=== PATIENT | female | born 1950 | race Caucasian/White ===

== ENCOUNTER → 2017-06-20 | Outpatient (CLI) | payer OTHER ==
[~2017-06-20] MED LIST: ALLEGRA180 MG PO; ASPIRIN EC81 M1 PO; BACTRIM DS TAB1 EACH PO; CALCIUM 500 WI1 EAC3 PO; CALCIUM PO; CLARITIN-D 121 EACH; FISH OIL 1,2001 EAC4 PO; FLEXERIL PO; FLONASE 0.05%50 MCG NASAL; GLUCOPHAGE1000 MG PO; GLUCOPHAGE500 MG PO; HCTZ PO; LANTUS SC; LISINOPRIL-HCT1 EAC1 PO; LISINOPRIL10 MG PO; LOVASTAT40 PO; NORCO 7.5-3251 EACH PO; NOVOLOG100 UNIT/1 SQ; POTASSIUM99 M1 PO; RANITIDINE HCL300 M1 PO
== END ==
LOC: CAT 15:54
DX: N20.0 Calculus of kidney (principal)

== ENCOUNTER → 2017-12-28 | Outpatient (CLI) | payer OTHER | LOC: RAD 00:55 | DX: Z12.31 Encounter for screening mammogram for malignant neoplasm of breast (principal) ==

== ENCOUNTER → 2019-01-15 | Outpatient (CLI) | payer OTHER | LOC: RAD 02:28 | DX: Z12.31 Encounter for screening mammogram for malignant neoplasm of breast (principal) ==

== ENCOUNTER → 2019-03-25 | Outpatient (CLI) | payer OTHER ==
[2019-03-25 10:45] LABS: CREATININE 1.2 mg/dL (0.6-1.0)
== END ==
LOC: MRI 10:12
PROVIDERS: Surgery
DX: N63.12 Unspecified lump in the right breast, upper inner quadrant (principal); N63.20 Unspecified lump in the left breast, unspecified quadrant

== ENCOUNTER 2019-04-04 06:32 | Inpatient (IN) | payer OTHER ==
[~2019-04-04] VITALS: Ht 154.9 cm; Wt 112.5 kg
[~2019-04-04 06:32] MED LIST changes: +AMARYL2 M1 PO; +BYSTOLIC10 MG PO; +CALCIUM 600 +1 EAC1 PO; +CARAFATE 1 GM TA1 G1 PO; +CO Q-10100 MG PO; +FLAX OIL1000 MG PO; +LOSARTAN-HCTZ1 EAC2 PO; +MAGOX 400400 MG PO; +TRADJENTA5 MG; +VITAMIN B-12500 MCG PO; +VITAMIN D-32000 UNIT PO
[2019-04-04 07:15] VITALS: BP 152/51
[2019-04-04 07:41] LABS: CALCIUM 9.4 mg/dL (8.5-10.1); CREATININE 1.5 mg/dL (0.6-1.0); POTASSIUM 3.8 mmol/L (3.5-5.1)
[2019-04-04 07:48] LABS: ALBUMIN 3.3 g/dL (3.4-5.0); TOTAL BILIRUBIN 0.4 mg/dL (<0.1-1.0); TOTAL PROTEIN 6.9 g/dL (6.4-8.2)
--- NOTE | 2019-04-04 13:43 | EKG ---
[address] [address] ELECTROCARDIOGRAM REPORT Name: ONUR JACKSON Room #: 150-3 [facility]#: [id number] Admission: 04/04/19 Attend Phys: Jak Stone MD Discharge: Date of : 46 Report #: [id number] THIS REPORT FOR: //name// [facility] Test Date: 2019-04-04 Test Time: 07:22:43 Pat Name: ONUR JACKSON Department: Room: 150 3 Gender: F Public Relations Manager: JOHNNIE : 1950 Requested By: Jak Stone Order Number: [id number] MD: Hernando Ceja Measurements Intervals [place] Rate: 50 P: 35 MD: 193 QRS: -9 QRSD: 82 T: 31 QT: 458 QTc: 418 Interpretive Statements Sinus rhythm Inferior infarct, old Compared to ECG 06/12/2013 11:57:47 Myocardial infarct finding now present Sinus bradycardia no longer present Electronically Signed On 04-04-2019 13:43:41 CDT by Hernando Ceja [email or web address] <ELECTRONICALLY SIGNED> By: Hernando Ceja MD 04/04/19 1343 0722 1 Hernando Ceja MD /COLL[place]
[2019-04-04 15:36] VITALS: BP 189/54
--- NOTE | 2019-04-04 16:57 | NUR ---
ASSESSMENT-PT LIVES AT HOME IN A SPLIT LEVEL HOUSE WITH HER WHO IS HANDICAPPED. HE USES A WC TO GET AROUND, HE IS ABLE TO TRANSFER HIMSELF TO THE WC. HE NEEDS HELP WITH HIS MEDS DUE TO BRAIN INJURY. THEY HAVE 2 DTRS THAT LIVE 5-10 MINUTES AWAY. [facility] WILL BE AVAILABLE TO ASSIST ALL NEXT WEEK AT [facility]. PT HAS A GIRLFIRIEND THAT WILL COME STAY WITH HER TO ALLOW [facility]ANTU TAKE HER DAD TO APPT AT THE [place] ON SUN. THEY HAVE A LIFT ON THE VAN FOR THE SCOOTER. THEY HAVE 2 STAIRGLIDES TO ENTER TO MAIN LEVEL. ON THE LOWER LEVEL THEY HAVE A BEDRROM AND KITCHEN AREA. [place] ON MAIN LEVEL. BEDRROMS ARE UPER LEVEL. THEY ARE ASKING ABOUT THE HEALING CHAIR FOR PT TO BE ABLE TO SLEEP IN. APPLICATION FILLED OUT ONLINE WITH [facility] BUT UNABLE TO LOCATE A PHONE NUMBER FOR THEM. DTR GOING TO FOLLOW-UP WITH HER AUNT WHO HAD ASISTED A COUSIN IN GETTING A CHAIR A COUPLE OF YRS AGO. PT IS NORMALLY THE CAREGIVER FOR HER SPOUSE. [facility] HAS [place] PAPERWORK THAT WILL NEED TO BE COMPLETED BY DR. LIPSCOMB TO ASSIST WITH DC PLANNING.
--- NOTE | 2019-04-04 19:17 | NUR ---
ASSESMENT COMPLETED. VSS. A/O. PAIN MANAGED BY MEDS ORDERED. NO NOTED SOA. NO NV. DANIELLA WRAP ACCROSS CHEST CDI. BRIANNA TO BULB SUCTION X2 ON LEFT SIDE. BRIANNA X1 TO RIGHT. UP WITH ASSIST STAND BY TO COMMODE. PT RESTING IN BED APPEARS COMFORTABLE. REPORT GIVEN TO [facility] [place].
[2019-04-04 19:55] VITALS: BP 147/52
--- NOTE | 2019-04-05 04:29 | NUR ---
ASSUMED PT CXARE 1900. PT ALERT AND ORIENTED. REASSESSMENT COMPLETE. VSS. IV DRESSING C/D/I. POST OP DRESSING C/D/I, DRAINS IN PLACE. REPORTS PAIN, SEE EMAR. DENIES N/V. WORKING TOWARD POC. CALL LIGHT AND PERSONAL BELONIGNS WITHIN REACH, WILL CONTINUE POC UNTIL EOS.
[2019-04-05 04:56] VITALS: BP 129/38
[2019-04-05 04:59] LABS: CALCIUM 8.2 mg/dL (8.5-10.1); CREATININE 1.4 mg/dL (0.6-1.0); POTASSIUM 4.5 mmol/L (3.5-5.1)
[2019-04-05 05:09] LABS: HEMATOCRIT 31.3 % (37.0-47.0); HEMOGLOBIN 10.4 gm/dL (12.0-15.0); MCH 28.7 pg (26.0-34.0); MCHC 33.1 g/dL (28.0-37.0); MCV 86.9 fL (80.0-100.0); RBC 3.6 mil/uL (4.20-5.00); RDW 14.7 % (10.5-14.5)
[2019-04-05 07:34] VITALS: BP 118/43
[2019-04-05 16:23] VITALS: BP 130/45
--- NOTE | 2019-04-05 18:09 | NUR ---
ASSUMED CARE OF PT AT 0700. ASSESSMENT CHARTED. A&O,X4. C/O POD1 PAIN, PO PAIN MEDS GIVEN ORDERED. DENIES N/V/D. ACHS, INSULIN GIVEN ORDERED. ELEVATED BLOOD SUGARS NOTED, DR. WYNNE AND DR. GIBSON AWARE. RIGHT SIDE BRIANNA DRAIN X1 AND LEFT BRIANNA DRAIN X2. DANIELLA WRAP IN PLACE AROUND UPPER CHEST, C/D/I. NO DRESSING CARE ORDERS. NEW IV ACCESS OBTAINED BY IV TEAM AT BEGINNING OF SHIFT. ROOM AIR DURING THE DAY/ CPAP AT NIGHT. FAMILY INVOLVED IN PT CARE, AT BEDSIDE THROUGHOUT DAY. POSSIBLE D/C TOMORROW. VSS. WILL CONTINUE TO MONITOR UNTIL EOS.
--- NOTE | 2019-04-06 03:47 | NUR ---
Pt. rested quietly during the night when checked on during frequent rounds. She has been medicated for bilateral breast pain and nausea (see emar) with some relief noted. She did ambulate to the bathroom with assistance of one. Dressing to her chest is intact.
[2019-04-06 05:38] VITALS: BP 134/45
[2019-04-06 08:03] VITALS: BP 145/48
--- NOTE | 2019-04-06 18:11 | NUR ---
Assumed care of pt at 0700. Pt a&ox4. Dressing on brests changed per verbal order. Pain controlled with prn pain meds. [address] Pt has hematoma on right side. Up with 1 person. Call light within reach. Family at bedside. Will continue to monitor.
[2019-04-06 19:57] VITALS: BP 147/39
--- NOTE | 2019-04-07 03:32 | NUR ---
ASSESSMENT COMPLETED.GOT A CALL FROM MALLORY BUCKNER NOTED TO KEEP PT AFTER MN FOR A PROCEDURE LATER IN THE DAY,AND TO HOLD AM INSULIN.PT HAS THREE BRIANNA DRAINS,2 ON L AND 1 ON R,SEROSANGUINEOUS DRAINAGE NOTED.PT UP WITH SBA,MIN ASSIST NEEDED TO THE BR.JAMES C/D/I.PT SLEEPING WITH A CPAP AT THIS TIME.FALL PRECAUTIONS IN PLACE,CALL LIGHT WITHIN REACH.
[2019-04-07 03:47] VITALS: BP 147/36
[2019-04-07 05:53] LABS: HEMATOCRIT 25.1 % (37.0-47.0); MCH 29.1 pg (26.0-34.0); MCHC 33.6 g/dL (28.0-37.0); MCV 86.7 fL (80.0-100.0); RBC 2.89 mil/uL (4.20-5.00); RDW 14.8 % (10.5-14.5); WBC 8.5 thou/uL (4.0-11.0)
[2019-04-07 05:57] LABS: HEMOGLOBIN 8.4 gm/dL (12.0-15.0)
[2019-04-07 07:38] VITALS: BP 138/37
--- NOTE | 2019-04-07 08:56 | NUR ---
ASSESMENT COMPLETED. VSS. C/O MILD PAIN ON RIGHT BREAST -MEDS GIVEN ORDERED- SEE MAR. NO NOTED SOA. ENCOURAGED USE OF IS. NO NV. PT RESTING IN BED. PLANS FOR HEMATOMA EVACUATION TODAY WITH DR. WYNNE. PT REMAINS NPO. WILL CONT. TO MONITOR.
[2019-04-07 14:52] VITALS: BP 153/42
--- NOTE | 2019-04-07 16:45 | NUR ---
S/W [facility] AND THEY HAVE OBTAINED THE HEALING RECLINER CHAIR. SHE IS ASKING OABOUT A BSC. BR/BEDROOM ON SAME LEVEL THEREFORE MEDICARE WILL NOT COVER BSC. INFORMED SHE COULD PURCHASE ONE AT [address], [facility], [email or web address]. FOLLOWING.
--- NOTE | 2019-04-07 16:56 | NUR ---
PT BACK FROM SURGERY. BRIANNA DRAIN TO RIGHT X2 PATENT. FAMILY AT BEDSIDE. PT RESTING IN BED APPEARS COMFORTABLE. FAMILY AT BEDSIDE. WILL CONT. TO MONITOR.
[2019-04-07 19:17] VITALS: BP 150/51
[2019-04-08 04:27] VITALS: BP 154/50
[2019-04-08 10:48] LABS: HEMATOCRIT 26.8 % (37.0-47.0); MCH 29.1 pg (26.0-34.0); MCHC 33.6 g/dL (28.0-37.0); MCV 86.7 fL (80.0-100.0); RBC 3.1 mil/uL (4.20-5.00); RDW 14.7 % (10.5-14.5); WBC 9.7 thou/uL (4.0-11.0)
[2019-04-08 10:58] LABS: CALCIUM 8.9 mg/dL (8.5-10.1); CREATININE 1.1 mg/dL (0.6-1.0); POTASSIUM 3.8 mmol/L (3.5-5.1)
[2019-04-08] MEDS ORDERED: HYDROCODON-ACE1 EAC7 PO (12:48)
[2019-04-08] MEDS ORDERED: ZOFRAN ODT4 MG DISSOLVE (12:48)
[2019-04-08] MEDS ORDERED: IRON325 PO (12:49)
[2019-04-08 14:09] VITALS: BP 154/50
[2019-04-08 14:31] VITALS: BP 154/50
[2019-04-08 14:34] VITALS: BP 154/50
[2019-04-08 15:26] VITALS: BP 154/50
--- NOTE | 2019-04-08 15:30 | NUR ---
DISCHARGE PAPERS GONE OVER WITH PATIENT AND PATIENT'S DAUGHTER SIGNED AND COPY IN CHART. ALL BELONGINGS PACKED AND SENT WITH PATIENT . IV ACSESS DCD. SENT HOME WOUND CARE SUPPLIES.
--- NOTE | 2019-04-09 16:13 | NUR ---
LATE ENTRY FROM 04/08/19 OFFERED HH OPTIONS TO PT AND DTR [facility] AND THEY CHOSE [facility]. ALERTED [facility] OF THE REFERRAL AND THEY ARE ABLE TO ACCEPT IT.
--- NOTE | 2019-04-15 11:07 | PATH ---
[facility] [place] [address] PATHOLOGY RPT PROCEDURE Name: COLETTE JACKSON Room #: 431-P [facility] IN M.R.#: [id number] Admission: 04/05/19 Date of : 46 Discharge: 04/08/19 Report #: [id number] Path Case #: [id number] LCA Accession Number: [id number] . 01 Material submitted: . PART A: breast - LEFT BREAST; LONG STITCH LATERAL, SHORT STITCH SUPERIOR. Modifiers: left PART B: lymph node - LEFT AXILLARY SENTINEL LYMPH NODES 1 - FS. Modifiers: left, axillary tail PART C: lymph node - LEFT AXILLARY SENTINEL LYMPH NODES 2 - FS. Modifiers: left, axillary tail PART D: lymph node - HIGHEST LEFT AXILLARY LYMPH NODES. Modifiers: left, axillary tail PART E: lymph node - LEFT AXILLARY NODE DISSECTION. Modifiers: left, axillary tail PART F: breast - RIGHT BREAST; SHORT STITCH SUPERIOR, LONG STITCH LATERAL. Modifiers: right . 01 Clinical history: . Left breast cancer. . 02 Frozen section diagnosis: . TOUCH PREPARATION DIAGNOSIS: (Dr. Falguni Amado) TPB1. Left axillary sentinel lymph node #1, biopsy: - Positive for malignancy; malignant epithelial cells present. . TPC1. Left axillary sentinel lymph node #2, biopsy: - Positive for malignancy; malignant epithelial cells present. . These findings are discussed with Dr. Jak Stone and a written report is placed in the patient's chart. TOUCH PREPARATION GROSS DESCRIPTION: B. Received fresh from the OR labeled with the patient's name and "left axillary sentinel lymph node #1", and consists of a 2.0 x 2.0 x 0.8 cm fatty fragment of tissue. The specimen is bisected and touch preparations are made labeled as TPB1. The entire tissue is submitted for permanent sections only as B1. . Time of tissue removal is 10:43 am, time tissue placed in formalin is 11:00 am on 04/04/2019. . C. Received fresh from the OR labeled with the patient's name and "left axillary sentinel lymph node #2", and consists of a 1.5 x 1.0 x 0.5 cm tissue. The specimen is bisected and touch preparations are made labeled TPC1. The entire tissue is bisected and submitted for permanent sections only as C1. (IUV:[facility]; 04/04/2019) . [place] [address] [place] [address] PATHOLOGY RPT PROCEDURE Name: COLETTE JACKSON Doreen Room #: 431-P [facility] IN M.R.#: [id number] Admission: 04/05/19 Date of : 46 Discharge: 04/08/19 Report #: [id number] Path Case #: [id number] Touch Preparation performed at [facility], [facility] [address], [place] [address]. IZV/QTP . 02 Diagnosis: A. 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 - Focal associated ductal carcinoma in situ, solid and cribriform types, nuclear grade II-III/III, with focal necrosis. - Margins of excision: Negative; invasive carcinoma is located a minimum of 0.5 cm away from the closest (deep) margin; ductal carcinoma in situ is located greater than 1 cm away from the margins. - Areas suspicious for angiolymphatic invasion are present. - Calcifications are present in association with invasive carcinoma. - Skin of breast with seborrheic keratoses, two. . B. "[place] lymph node #1", left axilla, biopsy: - ONE LYMPH NODE WITH METASTATIC ADENOCARCINOMA (08/27). - Metastatic focus measures 1.2 cm in greatest dimension and it exhibits extracapsular spread. . C. "[place] lymph node #2", left axilla, biopsy: - ONE LYMPH NODE WITH METASTATIC ADENOCARCINOMA (08/27). - Metastatic focus measures 0.8 cm in greatest dimension and it exhibits extracapsular spread. . D. "Highest left axillary lymph node", biopsy: - One lymph node with no evidence of carcinoma (0/). . E. Lymph nodes, "left axillary node dissection": - METASTATIC ADENOCARCINOMA PRESENT IN THREE OUT OF EIGHT LYMPH NODES (3/8). - Metastatic foci measure 0.6 cm, 0.3 cm, and 0.7 cm. . F. Breast, right, mastectomy: - Papillary apocrine metaplasia. - Sclerosing adenosis with associated calcifications, focal. - Simple cysts. - No evidence of atypia or malignancy. . (Please see comment and synoptic report) (SKM:pit; 04/08/2019) QTP/04/08/2019 . 02 Comment: [facility] [address] [address] PATHOLOGY RPT PROCEDURE Name: COLETTE JACKSON Room #: 431-P [facility] IN M.R.#: [id number] Admission: 04/05/19 Date of : 46 Discharge: 04/08/19 Report #: [id number] Path Case #: [id number] The tumor present in specimen "A" measured 6.5 cm grossly; however, the tumor was also present in random associate financial representative sections from the upper outer quadrant and lower outer quadrant which were grossly normal. Thus, the tumor has an estimated measurement of approximately 8.5 cm in greatest dimension. . The tumor present in the lymph node in part "B" will be tested for Her-2-ne u expression. The results will be issued in an addendum report. . . This patient's prior biopsy from [facility] Pathology (their ) showed an invasive carcinoma with the following breast prognostic studies: Estrogen receptor status - 90% positive; progesterone receptor status - 70% positive; Her2 negative by FISH, and a Ki-67 proliferation index of 20 to 30%. . Surgical Pathology Cancer Case Summary . Protocol posting date: September 2018 . INVASIVE CARCINOMA OF THE BREAST: Resection . A. Procedure ___ Total mastectomy (including nipple-sparing and skin-sparing mastectomy) . Specimen Laterality ___ Left . Tumor Size ___ Greatest dimension of largest invasive focus >1 mm: Approximately 8.5 cm . Histologic Type (Note D) ___ Invasive carcinoma of no special type (invasive ductal carcinoma, not otherwise specified) . Histologic Grade ([place] Histologic Score) Glandular (Acinar)/Tubular Differentiation ___ Score 3 (<10% of tumor area forming glandular/tubular structures) . Nuclear Pleomorphism ___ Score 3 (vesicular nuclei, often with prominent nucleoli, exhibiting marked variation in size and shape, occasionally with very large and bizarre forms) . [facility] [address] [place] [address] PATHOLOGY RPT PROCEDURE Name: COLETTE JACKSON Doreen Room #: 431-P [facility] IN [facility].#: [id number] Admission: 04/05/19 Date of : 46 Discharge: 04/08/19 Report #: [id number] Path Case #: [id number] Mitotic Rate ___ Score 1 . Overall Grade ___ Grade 2 (scores of 6 or 7) . Ductal Carcinoma In Situ (DCIS) ___ Present focally + ___ Negative for extensive intraductal component (EIC) + Estimated size (extent) of DCIS is approximately 4 mm . + Architectural Patterns + ___ Cribriform + ___ Solid . + Nuclear Grade + ___ Grade II-III/III . + Necrosis + ___ Present, focal (small foci or single cell necrosis) . Margins . Invasive Carcinoma Margins ___ Uninvolved by invasive carcinoma Distance from closest margin (millimeters): Deep Specify 0.5 cm . DCIS Margins ___ Uninvolved by DCIS Distance from closest margin: ___ Greater than 10 mm . Regional Lymph Nodes ___ Involved by tumor cells Number of Lymph Nodes with Macrometastases (>2 mm): 5 Size of Largest Metastatic Deposit: 12 mm . Extranodal Extension ___ Present in two of the lymph nodes . Total Number of Lymph Nodes Examined: 10 Number of [place] Nodes Examined: 2 . . Pathologic Stage Classification (pTNM, AJCC 8th Edition) . Primary Tumor (pT) [address] [address] PATHOLOGY RPT PROCEDURE Name: COLETTE JACKSON Room #: 431-P DIS IN [facility]#: [id number] Admission: 04/05/19 Date of : 46 Discharge: 04/08/19 Report #: [id number] Path Case #: [id number] ___ pT3:Tumor >50 cm in greatest dimension . Regional Lymph Nodes (pN) . ___ pN2a:Metastases in 4 to 9 axillary lymph nodes (at least 1 tumor deposit larger than 2.0 mm) + Microcalcifications + ___ Present in association with invasive carcinoma . (SKM:pit; 04/08/2019) . 02 Addendum: . . Special studies report received from [facility], [address] [place] [address], [address], [place], [address], on case [id number], labeled with their number [id number], dated 04/14/2019. . Breast/Prognostic Marker Analysis . Specimen Site: Lt Axillary LN,- Metastatic Breast Cancer Specimen ID #: [id number] . HER2 Not Over-Expressed Score: 0 Analysis: Manual . Time to Fixation (Cold Ischemic Time): Not Provided Duration of Fixation: Not Provided Type of Fixative: 10% Neutral Buffered Form . at [facility]. Joaquín Sadler MD Pathologist . . . Methodology: The HER2 Receptor protein expression is analyzed using the [place] HER2 rabbit monoclonal antibody (clone [id number]). This assay is used for diagnostic determination of the HER2 protein over-expression in paraffin embedded, formalin fixed breast cancer tissue on the [employer]. The specimen is processed using a secondary antibody-HRP conjugate detection system. The membrane staining of the tumor is determined either by manual score or image analysis. This antibody is intended for in vitro diagnostic use. The score is reported as 0, 1+, 2+, or 3+. This test is used for clinical purposes. [place] [id number] PATHOLOGY RPT PROCEDURE Name: COLETTE JACKSON Room #: 431-P [facility] IN [facility].#: [id number] Admission: 04/05/19 Date of : 46 Discharge: 04/08/19 Report #: [id number] Path Case #: [id number] . Intended Use: This antibody is intended for in vitro diagnostic (IVD) use. HER2 (4B5) is a rabbit monoclonal antibody intended for the semi-quantitative detection of HER2 antigen in sections of formalin-fixed, paraffin embedded normal and neoplastic tissue. . . Disclaimer: This Test was performed by [facility]. at [address], [place] [address], [place], [address]. . [facility] is a business unit of [facility]. a wholly-owned subsidiary of [employer]. . This assay has not been validated on decalcified tissues. Results should be interpreted with caution if this specimen was decalcified given the likelihood of false negativity on decalcified specimens. . Any image(s) that accompany this report is/are a associate financial representative image(s) only and should not be used to render a diagnosis. . This interpretation is contingent on the specimen and the clinical information received. . For any special tests/stains performed, known positive cells or tissues are tested with each marker and examined to ensure positivity. Positive and negative internal controls, if present, react appropriately. . This analysis is an adjunct to the evaluation of the referring physician and does not represent a final diagnosis. . The immunohistochemistry tests performed at [facility]. were validated on tissue fixed in 10% neutral buffered formalin. The performance characteristics of the tests performed on tissue processed in other fixatives is not known. . HER2 testing at [facility]., is performed in compliance with the 2018 updated ASCO/CAP Clinical Practice Guideline Focused Update. If the result is EQUIVOCAL (2+), it must be confirmed by an alternative assay such as FISH or Dual CHEO. REF: Greg MONTAGUE, BRITNEY Landers et al: Human Epidermal Growth Factor Receptor 2 Testing in Breast Cancer: ASCO/CAP Clinical Practice Guideline Focused Update. J Clin Oncol 36:6864-1909, 2018. HER2 and ER/DC ASCO/CAP guidelines require fixation in neutral buffered formalin for a minimum of 6 and a maximum of 72 hours. Fixation times less than 6 hours may not adequately preserve cell proteins. Fixation times [facility] [address] [place] [address] PATHOLOGY RPT PROCEDURE Name: COLETTE JACKSON Room #: 431-P DIS IN M.R.#: [id number] Admission: 04/05/19 Date of : 46 Discharge: 04/08/19 Report #: [id number] Path Case #: [id number] longer than 72 hours may cause excess cross-linking of proteins reducing the antigen available for staining. Either scenario can cause reduced staining; hence false negative results are possible and should be considered for these situations if the HER2 IHC score is less than 3+ or ER or DC is negative (no staining or <1% positive). It is recommended that specimens fixed longer than 72 hours with HER2 IHC scores less than 3+ be confirmed by HER2 FISH or Dual CHEO. The time from biopsy/excision to fixation in formalin (cold ischemic time) must be less than 1 hour. Time to fixation (cold ischemic time) greater than 1 hour should be interpreted with caution. HER2 testing, mainly HER2 by FISH, is particularly vulnerable since excessive cold ischemic time results in preferential loss of HER2 probe signals that may lead to false negative results. . SCORE STAINING PATTERN IN TUMOR CELLS INTERPRETATION RESULTS 0 No staining observed or incomplete, faint membrane staining in less than or equal to 10% of tumor cells. Negative 1+ Incomplete, faint membrane staining in greater than 10% of tumor cells. Negative 2+ Weak to moderate complete membrane staining observed in greater than 10% of tumor cells. Equivocal* *Must be confirmed by alternative assay (IHC/FISH/Dual CHEO) 3+ Intense, complete membrane staining in greater than 10% of tumor cells. Positive . A complete copy of the report is on file. . Professional and Technical services performed by [employer] [facility], [employer]. at [address], [place] [address]. . . (SKM:niko 04/15/2019) . AZTammie/04/15/2019 Addendum Electronically Signed by Ilya Phillips MD, Pathologist . 02 Electronically signed: . Ilya Phillips MD, Pathologist NPI- [id number] . 01 Gross description: . A. Received in formalin labeled "Colette Jackson, left breast long stitch [address] [address] PATHOLOGY RPT PROCEDURE Name: COLETTE JACKSON Room #: 431-P [facility] IN [facility].#: [id number] Admission: 04/05/19 Date of : 46 Discharge: 04/08/19 Report #: [id number] Path Case #: [id number] lateral short stitch superior" is a 2287 g simple mastectomy specimen which measures 32.6 cm from superior to inferior, 33.0 cm from medial to lateral, and 8.5 cm from anterior to posterior. On the anterior aspect is an ellipse of boateng-white skin measuring 33.0 x 24.2 x 0.5 cm. The skin displays multiple boateng-brown crusted lesions (at least 21 lesions) ranging from 0.6-2.3 cm in greatest dimension. The skin also displays a centrally located everted nipple measuring 1.7 x 1.5 x 0.5 cm. No induration or retraction is identified. The superior half of the anterior soft tissue margin is inked blue, the inferior half of the anterior soft tissue margin is inked green, and the deep/posterior fascia margin is inked black. The specimen is serially sectioned to reveal a boateng-white stellate mass at 12:00, 6.7 cm from the nipple. The mass measures 6.5 cm from medial to lateral, 6.3 cm from superior to inferior, and 2.5 cm from anterior to posterior. The mass is located to the margins as follows: 14.7 cm to superior, 17.1 cm to inferior, 8.8 cm to lateral, 12.3 cm to medial, 11.2 cm to posterior, and 2.3 cm to anterior. The uninvolved breast parenchyma is yellow and lobulated with 25% dense white fibrous tissue. No intramammary lymph nodes are grossly identified. Shared Services And Outsourcing Manager sections of the specimen are submitted as follows: A1 upper outer quadrant A2 lower outer quadrant A3 lower inner quadrant A4 upper inner quadrant A5 skin closest to mass A6 nipple, serially sectioned A7-A8 associate financial representative skin lesions A9 deep margin closest to mass A10 anterior margin closest to mass A11-A17 one section per centimeter of mass moving from lateral to medial The specimen is removed from the patient at 1031 and placed in formalin at 1042 on April 04, 2019. The specimen is removed from formalin at 1850 on April 06, 2019. . B. SEE FROZEN SECITON FOR GROSS DESCRIPTION. The specimen was removed from formalin at 6:50 PM on 04/06/2019. . C. SEE FROZEN SECTION FOR GROSS DESCRIPTION. The specimen was removed from formalin at 6:50 PM on 04/06/2019. . D. Received in formalin labeled "Colette Jackson, highest left axillary lymph node" is a 0.6 x 0.5 x 0.5 cm pink-boateng lymph node. The specimen is trisected and submitted in cassette D1. . E. Received in formalin labeled "Colette Jackson, left axillary node dissection" is a portion of yellow-boateng lobulated fibroadipose tissue measuring 11.2 x 9.0 x 3.0 cm. The specimen is palpated to reveal nine pink-[place]eng lymph nodes ranging from 0.3-1.5 cm in greatest dimension. Shared Services And Outsourcing Manager sections of the specimen are submitted as follows: [facility] [address] [place] [address] PATHOLOGY RPT PROCEDURE Name: COLETTE JACKSON Room #: 431-P [facility] IN M.R.#: [id number] Admission: 04/05/19 Date of : 46 Discharge: 04/08/19 Report #: [id number] Path Case #: [id number] E1-E2 multiple whole lymph nodes in each cassette E3-D5 one lymph node in each cassette, serially sectioned E6-E8 fibroadipose tissue to look for additional lymph nodes . F. Received in formalin labeled "Colette Jackson, right breast short superior long lateral" is a 2381 g simple mastectomy specimen which measures 33.5 cm from medial to lateral, 35.5 cm from superior to inferior, and 8.5 cm from anterior to posterior. The anterior aspect displays an ellipse of boat[place]-white skin measuring 32.6 x 26.0 x 0.4 cm. The skin displays multiple boateng-brown crusted lesions (at least 8) ranging from 0.4-2.1 cm in greatest dimension. The skin also displays a centrally located everted nipple measuring 1.3 x 1.2 x 0.5 cm. No skin retraction or induration is identified. The specimen is serially sectioned to reveal a possible intramammary lymph in the upper outer quadrant measuring 1.1 cm. No masses are identified. The cut surface is comprised of 75% yellow lobulated tissue and 25% dense white fibrous tissue. Shared Services And Outsourcing Manager sections are submitted as follows: F1 upper outer quadrant F2 lower outer quadrant F3 lower inner quadrant F4 upper inner quadrant F5 associate financial representative skin F6 nipple, serially sectioned F7-F8 associate financial representative skin lesions F9 entire possible intramammary lymph node The specimen is removed from the patient at 1132 and placed in formalin at 1138 on April 04, 2019. The specimen is removed from formalin at 1850 on April 06, 2019. ([facility]; 04/06/2019) SYC/SYC . 02 Pathologist provided ICD-10: C50.912, D05.12, N64.1, L82.1, C77.9, C77.3, N60.81, N60.21, N60.01 . 02 CPT . 880176, 184978, 015550, 703002, 828585, 361888 Specimen Comment: A courtesy copy of this report has been sent to Specimen Comment: [phone], , , . Specimen Comment: Report sent to ,DR LOCKE,DR BOSE / MARTINEZ Performed at: [address], [place] [id number] MD Sp Julian MD Phone: [phone] Performed at: [address] [id number] MD Falguni Amado MD Phone: [phone]
--- NOTE | 2019-05-01 12:47 | O ---
[facility] [place] [address] OPERATIVE REPORT Name: ONUR JACKSON Room #: 431-P [facility] IN M.R.#: [id number] Admission: 04/05/19 Attend Phys: Jak Stone MD Discharge: 04/08/19 Date of : 46 Report #: [id number] THIS REPORT FOR: //name// CC: Alfred Stone DATE OF SERVICE: 04/04/2019 PREOPERATIVE DIAGNOSES: 1. Left breast adenocarcinoma, recently diagnosed. 2. High risk with positive family history. 3. Bilateral large breasts with back and shoulder pain. PROCEDURES PERFORMED: 1. Left mastectomy with sentinel node biopsy followed by left axillary node dissection. 2. Right mastectomy. ANESTHESIA: General. SURGEON: Jak Stone MD COMPLICATIONS: None. ESTIMATED BLOOD LOSS: 150 mL. FINDING: The sentinel nodes 1 and 2 were positive and axillary dissection was then performed. No obvious involvement in the rest of the lymph nodes. PROCEDURE NOTE: With the patient under general anesthesia, both breasts and axillae were prepped and draped in sterile fashion. IV antibiotic was given. A timeout was performed. Mastectomy incision was then drawn. The patient has large pendulous breasts. Quite a bit of skin was removed. The breast biopsy site is slightly superior to the tumor and this was excised over the specimen. X was marked at 12 o'clock position, where the tumor was palpable. After making the superior incision, the skin flap was created taking the skin off the breast until the chest wall was encountered. Inferior skin incision was then made. Cautery was used for hemostasis. Hemoclip was used for hemostasis. The inferior skin flap was created without difficulty. The breast was then taken off the chest wall. Again, Hemoclips were applied for the perforating vessels. The breast was then flipped laterally. The breast was then excised. [place] node was identified using the Neoprobe. The Neoprobe guided to the lymph node and these were the ones that I saw in the office, which had an abnormal appearance. There were two lymph nodes that were identified. [place] node #1 had the higher activity measuring 2069 count per 10 second. [place] node #[address] [address] OPERATIVE REPORT Name: ONUR JACKSON Room #: 431-P [facility] IN M.R.#: [id number] Admission: 04/05/19 Attend Phys: Jak Stone MD Discharge: 04/08/19 Date of : 46 Report #: [id number] had a count of 1304. Rest of the lymph node did not have any measurable, significant activity. The sentinel node 1 and 2 were analyzed by the pathologist. The breast specimen was also given to the pathologist, with orientation where the tumor is located. The sentinel nodes on frozen section were positive. The right axillary node dissection was then performed. The patient had a branch of the axillary vein that was identified. This was pretty small. I did not see the actual larger size vein. I could see the artery and found the artery. Dissection was carried to the apex. The blood supply to the pectoralis was preserved. Lymph tissue was then dissected free. The long thoracic nerve was identified. Because of the variation in the venous anatomy, I did not dissect out the thoracodorsal nerve pedicle. The nodes were harvested without difficulty. Irrigation was performed. Hemostasis obtained. Moist lap tape was then placed in the axilla, in the mastectomy site. The left side was covered with a towel. After changing gown, gloves, suction cautery and suction, the right mastectomy was then performed. The right mastectomy was performed in the identical manner. The incision was drawn. Most of the skin was removed since the patient's breast is so large. The superior skin flap was created. The inferior skin flap was created. Clips were used. Cautery was used. Breast was then taken off the chest wall, going medial to lateral direction. The lateral part was then amputated. Specimen was then placed in formalin. The right side was irrigated. The subcutaneous tissue was brought together with a 3-0 Vicryl on both sides. Skin was then closed with 4-0 PDS. One #19 Vincent drain was left on the right side. Two #19 Vincent drains were placed on the left, one towards the axilla, the other one under the skin flap. Dermabond was used. Fluffy 4 x 4 was applied, ABDs, and Marty wrap was then used around the chest. The patient had issues with Steri-Strips and adhesive. None was used. Skin was closed with Dermabond. After the subcutaneous suture was placed, Dermabond was applied. <ELECTRONICALLY SIGNED> By: Jak Stone MD 05/01/19 [id number] Jak Stone MD /nt
--- NOTE | 2019-05-01 12:47 | H ---
[facility] [place] [address] HISTORY AND PHYSICAL Name: ONUR JACKSON Room #: 431-P [facility] IN .R.#: [id number] Admission: 04/05/19 Attend Phys: Jak Stone MD Discharge: 04/08/19 Date of : 46 Report #: [id number] THIS REPORT FOR: //name// CC: Alfred Stone DATE OF SERVICE: 04/04/2019 PREOPERATIVE DIAGNOSIS: The patient with recently diagnosed left breast cancer. She is here for bilateral mastectomies. HISTORY OF PRESENT ILLNESS: The patient is a 69-year-old who noticed a mass in her left breast. The patient had a mammogram in December. The report was normal. The patient was seen recently in the office and initially, I thought the mass was more superficial and was soft consistent with lipoma, but upon closer inspection, there is a mass underneath this, which the patient was able to identify. The patient sees a slightly raised area in the left upper part of the left breast. This started about in November and is becoming more and more defined and firm feeling. The patient denies any pain. The does have family history of breast cancer. One of her sisters had breast cancer at age 70 and had lumpectomy, radiation, no chemo. Maternal grandmother of breast cancer. Three of her brothers have had prostate cancer. The patient underwent ultrasound in the office and I did see a mass. This was biopsied with ultrasound guidance. The pathology did come back with invasive ductal carcinoma. The ER and MN were positive. HER2 was initially equivocal. FISH study was negative. The patient's Ki-67 is 20%. The patient has been complaining of pretty significant back pain between her shoulder from her large breasts. She did have an MRI, which did show the mass and some enlarged nodes in the left. There is a benign enhancement on the right. Because of her mammogram did not pick this mass up, the patient is wanting to proceed with a mastectomy, which I agree. Because of her large asymmetry in her chest, she wants to proceed with a right mastectomy. She is having significant amount of shoulder pain from her large breasts. She wished that she had done that years ago. I agree that bilateral mastectomy would be a good idea. The patient is here for surgery. PAST MEDICAL HISTORY: 1. History of hypertension, diabetes, diverticulitis, reflux, esophagitis, hyperlipidemia, acute gout of the right foot. 2. Obstructive sleep apnea. 3. Hypothyroid. PAST SURGICAL HISTORY: The patient has had carpal tunnel surgery, breast biopsy in 2012 Hysterectomy, tonsillectomy, the biopsy that I performed was more of an infection or cyst along the inferior edge of the right breast. I believe she [facility] [address] [place] [address] HISTORY AND PHYSICAL Name: ONUR JACKSON Room #: 431-P [facility] M.R.#: [id number] Admission: 04/05/19 Attend Phys: Jak Stone MD Discharge: 04/08/19 Date of : 46 Report #: [id number] had a stereotactic breast biopsy prior to that on the right breast. ALLERGIES: SHE IS ALLERGIC TO PENICILLIN, KEFLEX AND STERI-STRIPS. MEDICATIONS: The patient takes a baby aspirin, takes Bystolic 10 mg daily, lovastatin 40 mg daily, linagliptin 5 mg daily, HCTZ/losartan 12.5/100 once daily, ranitidine 300 mg once daily, glimepiride 2 mg once daily, Carafate 1 gram twice daily. The patient also takes nonprescription calcium, Zyrtec, vitamin D3, magnesium, flaxseed, vitamin B12, CoQ10. FAMILY HISTORY: Dad of cancer. Mother of heart disease and diabetes. Again, multiple brothers have had prostate cancer, a sister had breast cancer, maternal grandmother had breast cancer. 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 She does not drink or smoke. REVIEW OF SYSTEMS: The patient has dry eye and hearing difficulty. Reflux. No chest pain, shortness of breath. No numbness, no weakness. PHYSICAL EXAMINATION: GENERAL: The patient is a well-nourished, moderately obese elderly female in no acute distress. HEENT: Pupils react to light. Extraocular muscles are intact. Oropharynx is clear. NECK: Soft and supple, no JVD. LUNGS: Clear to auscultation. HEART: Regular rate and rhythm. No murmur or gallop. BREASTS: The patient's breasts are large size. There is a mass at 12 o'clock in the left breast about 2 inches above the edge of the areola. NEUROLOGIC: No definite palpable axillary adenopathy. Right breast shows nodularity thickening without mass. ABDOMEN: Soft, nondistended, nontender. No mass, guarding, rigidity, rebound. Motor function is intact. Sensation is normal. IMPRESSION: The patient is a 69-year-old with recently diagnosed breast cancer. This is probably 3 cm in size. MRI suggested to be 4.4. This is also suspicious axillary node. The patient wishes to proceed with a mastectomy. This was not detected on her mammogram. Retrospect, there was some thickening and there was abnormality there in hindsight. The patient wishes to proceed with a mastectomy. She has a pretty significant family history of breast cancer. I think her wishes to have a right mastectomy is warranted. I agree with that. She also has severe shoulder discomfort from her large breasts. Bilateral mastectomy will be performed. [place] node biopsy with possible left axillary dissection. After all the information is obtained, then the patient [facility] [address] [place] [address] HISTORY AND PHYSICAL Name: ONUR JACKSON Room #: 431-P [facility] IN ..#: [id number] Admission: 04/05/19 Attend Phys: Jak Stone MD Discharge: 04/08/19 Date of : 46 Report #: [id number] will be sent to see Dr. Marinelli, medical oncologist. The patient may need chemotherapy. <ELECTRONICALLY SIGNED> By: Jak Stone MD 05/01/19 1247 2142 2211 Jak Stone MD /nt
--- NOTE | 2019-05-01 12:48 | P ---
[facility] [place] [address] PROCEDURE REPORT Name: ONUR JACKSON Room #: 431-P [facility] IN M.R.#: [id number] Admission: 04/05/19 Attend Phys: Jak Stone MD Discharge: 04/08/19 Date of : 46 Report #: [id number] THIS REPORT FOR: //name// CC: Alfred Stone DATE OF SERVICE: 04/07/2019 PREOPERATIVE DIAGNOSIS: Moderately large hematoma, right mastectomy site. POSTOPERATIVE DIAGNOSIS: Moderately large right mastectomy hematoma with skin necrosis. PROCEDURES PERFORMED: Evacuation of moderately large mastectomy hematoma and excisional debridement of skin and subcutaneous tissue along the upper edge of the skin flap. ANESTHESIA: IV sedation and local 0.25% Marcaine. COMPLICATIONS: None. BLOOD LOSS: 20 mL. SURGEON: Jak Stone MD There is about 500-750 mL of clotted and some liquified blood under the flap. PROCEDURE NOTE: With the patient under IV sedation, the right breast was prepped and draped in sterile fashion. IV antibiotic was administered. Timeout was performed. A 0.25% Marcaine was used to anesthetize the skin and subcutaneous tissue along the lateral aspect of the mastectomy flap. The incision was opened about 2/3 of the length. A large clot was found and some small amount of liquified blood was evacuated, estimated about 500-700 mL clot. There is no evidence of purulent fluid. After thoroughly removing the clots, small oozing sites were identified. These were sutured with 3-0 Vicryl suture. Cautery was then also used. Copious irrigation was performed. The previous drain was removed. Careful search of the cavity for further evidence of bleeding was performed. No heavy bleeding was ever identified. Two #19 Vincent drain was placed. One was placed through the initial drain site. Second tube was placed laterally and under the upper flap through a separate small incision laterally. Both drain were sutured with 2-0 silk suture. The subcutaneous tissue was closed with 3-0 Vicryl suture. At the end, this was tied to the oval suture. Skin was closed with 4-0 PDS running [facility]cuticular fashion. [facility] [address] [place] [address] PROCEDURE REPORT Name: ONUR JACKSON Room #: 431-P [facility] IN ..#: [id number] Admission: 04/05/19 Attend Phys: Jak Stone MD Discharge: 04/08/19 Date of : 46 Report #: [id number] was applied, 4 x 4, Marty wrap was applied. The patient tolerated the procedure well and was taken to recovery room. <ELECTRONICALLY SIGNED> By: Jak Stone MD 05/01/19 1248 2201 1554 Jak Stone MD /nt
== END 2019-04-08 15:34 | disposition home health service (06) | DRG 581 ==
LOC: OR 06:32 → TBA 06:33 → NUC 10:06 → EDSTATUS 14:38 → OR 14:42 → 4E 15:27 → OR 04-05 12:00 → ENTRNSPT 04-08 15:09 → EDTRNSPTSTS 04-08 15:12 → 4E 04-08 15:34
PROVIDERS: ADMIT Surgery
DX: C50.912 Malignant neoplasm of unspecified site of left female breast (principal); I10 Essential (primary) hypertension; E11.9 Type 2 diabetes mellitus without complications; K21.9 Gastro-esophageal reflux disease without esophagitis; E78.5 Hyperlipidemia, unspecified; M10.9 Gout, unspecified; G47.33 Obstructive sleep apnea (adult) (pediatric); E03.9 Hypothyroidism, unspecified; Z90.710 Acquired absence of both cervix and uterus; Z88.8 Allergy status to other drugs, medicaments and biological substances; Z88.0 Allergy status to penicillin; Z79.899 Other long term (current) drug therapy; Z79.82 Long term (current) use of aspirin; Z80.3 Family history of malignant neoplasm of breast; Z80.42 Family history of malignant neoplasm of prostate; Z82.49 Family history of ischemic heart disease and other diseases of the circulatory system; Z83.3 Family history of diabetes mellitus
CPT/HCPCS: 10783; 50010; 50101; 50331; 50386; 50417; 51301; 54118; 56524; 56525; 56526; 56805; 62110; 62850; 62900; 70005

== ENCOUNTER 2019-05-19 09:20 | Day surgery (SDC) | payer OTHER ==
[~2019-05-19] VITALS: Ht 162.6 cm; Wt 108.0 kg
--- NOTE | ~2019-05-19 | O ---
[facility] [place] [address] OPERATIVE REPORT Name: ONUR JACKSON Room #: DEP [facility]#: [id number] Admission: 05/19/19 ������������������ Attend Phys: Jak Stone MD Discharge: 05/19/19 ������������������ Date of : 46 Report #: [id number] THIS REPORT FOR: //name// CC: Alfred Stone DATE OF SERVICE: 05/19/2019 PREOPERATIVE DIAGNOSIS: Recently diagnosed left breast cancer, stage 3, needs Port-A-Cath for chemotherapy. POSTOPERATIVE DIAGNOSIS: Recently diagnosed left breast cancer, stage 3, needs Port-A-Cath for chemotherapy. PROCEDURE PERFORMED: Placement of Port-A-Cath via right subclavian approach. SURGEON: Jak Stone MD ANESTHESIA: IV sedation, local 0.25% Marcaine. COMPLICATIONS: None. ESTIMATED BLOOD LOSS: 5 mL. PROCEDURE NOTE: With the patient under IV sedation, a timeout was performed. The patient received IV vancomycin 1 gram. The right chest and lower neck was prepped and draped in sterile fashion. Timeout was performed. A 0.25% Marcaine was used to anesthetize the skin. A 2.5 cm incision was made infraclavicularly. The incision was carried down through the skin and subcutaneous tissue. The pectoralis fascia was identified. The dissection was carried at the pectoralis fascia inferiorly. The pocket was created. The port was placed in the pocket and had excellent fit. The patient was then placed in the Trendelenburg position. The subclavian vein was found on the second pass without difficulty. Wire was guided up. On fluoroscopy, the wire was noted to be up in the neck. I did raise the patient's head back up again once I got in the vein. I was able to manipulate the wire under fluoroscopy down from the IJ into the SVC. This was done without difficulty. A dilator was then placed over the wire. The catheter was then fitted to the port. It measured just a little bit shy of 20 cm. The catheter was fitted to the port using the locking device. The port catheter was flushed with heparinized saline. The track was dilated over the wire. The Peel-Apart sheath and the dilator was then placed over the wire and the dilator was removed. The catheter was placed inside the Peel-Apart sheath. The sheath was split apart leaving the catheter in the vein. The port was then placed inside the pocket. Antibiotic irrigation was used to flush out the pocket. The port was then sewn to the fascia level with 2-0 Prolene x 2. [address] [address] OPERATIVE REPORT Name: ONUR JACKSON Doreen Room #: DEP [facility]#: [id number] Admission: 05/19/19 ������������������ Attend Phys: Jak Stone MD Discharge: 05/19/19 ������������������ Date of : 46 Report #: [id number] Subcutaneous tissue was reapproximated with 3-0 PDS. Skin was closed with 5-0 PDS running subcuticular fashion. Dermabond was used. The port was then accessed without difficulty. Needle was placed in the port. Blood was aspirated easily and the port and the catheter were then flushed with saline solution. The needle was then withdrawn. Telfa and Op-Site was used for dressing. The patient was awakened and taken to recovery room having tolerated the procedure well. ��������������������������������������������� ���������������������������������������� By: ��������������������������������������������� 2157 2216 Jak Stone MD /nt
[~2019-05-19 09:20] MED LIST changes: +HYDROCODON-ACE1 EAC7 PO; +IRON325 PO; +VITAMIN B-6100 MG PO; +ZOFRAN ODT4 MG DISSOLVE
[2019-05-19 10:32] VITALS: BP 152/47
== END 2019-05-19 14:02 | disposition home or self-care (01) ==
LOC: OR 09:20 → TBA 11:38 → OR 14:02
DX: Z45.2 Encounter for adjustment and management of vascular access device (principal); C50.912 Malignant neoplasm of unspecified site of left female breast; I10 Essential (primary) hypertension; E11.9 Type 2 diabetes mellitus without complications; E78.5 Hyperlipidemia, unspecified; D64.9 Anemia, unspecified; K21.9 Gastro-esophageal reflux disease without esophagitis; G47.30 Sleep apnea, unspecified; Z79.4 Long term (current) use of insulin; Z87.19 Personal history of other diseases of the digestive system; Z85.828 Personal history of other malignant neoplasm of skin; Z87.442 Personal history of urinary calculi; Z87.891 Personal history of nicotine dependence; Z90.49 Acquired absence of other specified parts of digestive tract; Z90.710 Acquired absence of both cervix and uterus; Z98.890 Other specified postprocedural states; Z79.899 Other long term (current) drug therapy; Z88.0 Allergy status to penicillin; Z88.8 Allergy status to other drugs, medicaments and biological substances; Z79.82 Long term (current) use of aspirin
CPT/HCPCS: 50010; 50101; 50386; 50403; 51938; 54118; 56524; 56525

== ENCOUNTER 2019-06-22 20:29 | Emergency (ER) | payer OTHER ==
[~2019-06-22] VITALS: Ht 165.1 cm; Wt 95.3 kg
[2019-06-22] MEDS ORDERED: VITAMIN D31000 UNI2 PO (20:36)
[2019-06-22] MEDS ORDERED: COLACE 100 MG100 MG PO (20:37)
[2019-06-22] MEDS ORDERED: CHILDREN'S ZYRT10 M1 PO (20:37)
[2019-06-22] MEDS ORDERED: LIDOCAINE PRILOCAINE TOP (20:40)
[2019-06-22] MEDS ORDERED: L-GLUTAMINE500 MG PO (20:41)
[2019-06-22] MEDS ORDERED: ZOFRAN8 MG PO (20:43)
[2019-06-22] MEDS ORDERED: CARAFATE1 GM/10 ML PO (20:44)
[2019-06-22] MEDS ORDERED: B-COMPLEX PLUS1 EACH PO (20:45)
[2019-06-22] MEDS ORDERED: MAPAP500 MG PO (20:49)
[2019-06-22 21:26] LABS: HEMATOCRIT 32.8 % (37.0-47.0); HEMOGLOBIN 10.9 gm/dL (12.0-15.0); MCHC 33.1 g/dL (28.0-37.0); MCV 84.5 fL (80.0-100.0); PLATELET COUNT 113 thou/uL (150-400); RBC 3.88 mil/uL (4.20-5.00); RDW 16.1 % (10.5-14.5); WBC 16.8 thou/uL (4.0-11.0)
[2019-06-22 21:31] LABS: ANION GAP 9 mmol/L (7-16); BUN 27 mg/dL (7-18); CALCIUM 9.1 mg/dL (8.5-10.1); CHLORIDE 102 mmol/L (98-107); CO2 26 mmol/L (21-32); CREATININE 0.9 mg/dL (0.6-1.0); GLUCOSE 180 mg/dL (74-106); POTASSIUM 3.5 mmol/L (3.5-5.1); SODIUM 137 mmol/L (136-145)
[2019-06-22 21:37] LABS: ALBUMIN 3.1 g/dL (3.4-5.0); DIRECT BILIRUBIN < 0.1 mg/dL (<0.1-0.3); LIPASE 138 U/L (73-393); SGOT 19 U/L (15-37); SGPT 12 U/L (30-65); TOTAL BILIRUBIN 0.3 mg/dL (<0.1-1.0)
[2019-06-22 21:51] LABS: ABSOLUTE NEUTROPHILS 15.3 thou/uL (1.4-8.2)
[2019-06-22 21:53] LABS: ANISOCYTOSIS 1+
[2019-06-22 23:23] LABS: URINE BILIRUBIN NEGATIVE (Negative); URINE BLOOD NEGATIVE (Negative); URINE CLARITY CLEAR; URINE COLOR YELLOW; URINE GLUCOSE-RANDOM* NEGATIVE (Negative); URINE KETONES NEGATIVE (Negative); URINE LEUKOCYTES-REFLEX NEGATIVE (Negative); URINE NITRITE-REFLEX NEGATIVE (Negative); URINE PROTEIN (DIPSTICK) NEGATIVE (Negative); URINE UROBILINOGEN 0.2 E.U./dl (0.2-1.0)
[2019-06-23] MEDS ORDERED: BENTYL 20 MG TA20 M1 PO (00:05)
[2019-06-23 00:45] VITALS: BP 149/45
== END 2019-06-23 00:50 | disposition home or self-care (01) ==
LOC: ER 20:29
PROVIDERS: Emergency Medicine
DX: T45.1X5A Adverse effect of antineoplastic and immunosuppressive drugs, initial encounter (principal); R11.10 Vomiting, unspecified; D72.829 Elevated white blood cell count, unspecified; I10 Essential (primary) hypertension; E11.9 Type 2 diabetes mellitus without complications; E78.5 Hyperlipidemia, unspecified; G47.30 Sleep apnea, unspecified; K21.9 Gastro-esophageal reflux disease without esophagitis; Z79.4 Long term (current) use of insulin; Z87.442 Personal history of urinary calculi; Z90.49 Acquired absence of other specified parts of digestive tract; Z90.710 Acquired absence of both cervix and uterus; Z85.3 Personal history of malignant neoplasm of breast; Z90.13 Acquired absence of bilateral breasts and nipples; Z86.2 Personal history of diseases of the blood and blood-forming organs and certain disorders involving the immune mechanism; Z91.030 Bee allergy status; Z88.0 Allergy status to penicillin; Z88.8 Allergy status to other drugs, medicaments and biological substances; Y92.89 Other specified places as the place of occurrence of the external cause

== ENCOUNTER → 2019-08-14 | Outpatient (CLI) | payer OTHER ==
[~2019-08-14] MED LIST changes: +B-COMPLEX PLUS1 EACH PO; +BENTYL 20 MG TA20 M1 PO; +CARAFATE1 GM/10 ML PO; +CHILDREN'S ZYRT10 M1 PO; +COLACE 100 MG100 MG PO; +L-GLUTAMINE500 MG PO; +LIDOCAINE PRILOCAINE TOP; +MAPAP500 MG PO; +VITAMIN D31000 UNI2 PO; +ZOFRAN8 MG PO
== END ==
LOC: ULTRA 14:49
DX: M79.89 Other specified soft tissue disorders (principal)

== ENCOUNTER → 2019-10-08 | Outpatient (CLI) | payer OTHER ==
[~2019-10-08] MED LIST changes: +FUROSEMIDE 20 M20 MG PO; +L-GLUTAMINE500 M2 PO; +NEURONTIN 300300 M1 PO; +NORCO 5-325 TA1 EAC1 PO; +OMEPRAZOLE 20 M20 M1 PO
== END ==
LOC: SJCVC 11:18
DX: I10 Essential (primary) hypertension (principal); R94.31 Abnormal electrocardiogram [ECG] [EKG]; E78.00 Pure hypercholesterolemia, unspecified; E11.9 Type 2 diabetes mellitus without complications; E03.9 Hypothyroidism, unspecified; G47.33 Obstructive sleep apnea (adult) (pediatric); E78.5 Hyperlipidemia, unspecified; Z79.4 Long term (current) use of insulin; Z95.1 Presence of aortocoronary bypass graft; Z85.3 Personal history of malignant neoplasm of breast; Z79.899 Other long term (current) drug therapy; Z87.891 Personal history of nicotine dependence

== ENCOUNTER 2019-10-17 10:00 | Day surgery (SDC) | payer OTHER ==
[~2019-10-17] VITALS: Ht 160 cm; Wt 107.5 kg
--- NOTE | ~2019-10-17 | H ---
[facility] [place] [address] HISTORY AND PHYSICAL Name: ONUR JACKSON Room #: [facility] [place].R.#: [id number] Admission: Attend Phys: Jak Stone MD Discharge: Date of : 46 Report #: [id number] THIS REPORT FOR: //name// CC: Alfred Stone DATE OF SERVICE: 10/17/2019 PREOPERATIVE DIAGNOSIS: Recently diagnosed left breast cancer, status post bilateral mastectomy, status post port placement and chemotherapy. The patient is here for Port-A-Cath removal. HISTORY OF PRESENT ILLNESS: The patient is a 69-year-old who had a mass in her left breast. The patient did undergo bilateral mastectomy in March. She also underwent chemotherapy. The patient is here to have her port removed. The patient did have trouble with neuropathy. The patient is to start Arimidex. The patient also is starting radiation treatment to the left chest wall. PAST MEDICAL HISTORY: Same as it was on the last H and P in March. High blood pressure, diabetes, diverticulitis, reflux, hyperlipidemia, gout, obstructive sleep apnea, hypothyroid. ALLERGIES: THE PATIENT IS ALLERGIC TO PENICILLIN, KEFLEX AND STERI-STRIPS. MEDICATIONS: Baby aspirin, Bystolic, lovastatin, linagliptin, HCTZ, losartan, ranitidine, glimepiride, Carafate. FAMILY HISTORY: Dad of cancer. Mother had heart disease, diabetes. 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 She does not smoke or drink. REVIEW OF SYSTEMS: Problem from neuropathy. PHYSICAL EXAMINATION: GENERAL: She is moderately obese female. She is alert and oriented. Her mastectomy site has healed well. The port has been working fine. There is no redness. Port is located underneath the right clavicle. LUNGS: Clear. HEART: Regular rate and rhythm. No murmurs, rubs or gallops. ABDOMEN: Soft, nondistended, nontender. No mass. No guarding. EXTREMITIES: No cyanosis, clubbing or edema. IMPRESSION: The patient has finished chemotherapy. [place] [address] HISTORY AND PHYSICAL Name: ONUR JACKSON Doreen Room #: PRE [facility] M.R.#: [id number] Admission: Attend Phys: Jak Stone MD Discharge: Date of : 46 Report #: [id number] removal. She will be starting Arimidex by mouth and then radiation treatment. The patient understands the procedure and wishes to proceed. By: 2139 2218 Jak Stone MD /nt
--- NOTE | ~2019-10-17 | O ---
[facility] [place] [address] OPERATIVE REPORT Name: ONUR JACKSON Room #: PRE [facility] M.R.#: [id number] Admission: Attend Phys: Jak Stone MD Discharge: Date of : 46 Report #: [id number] THIS REPORT FOR: cc: George Pagan MD, Christopher B. MD Chu, Peter Y. MD ~ CC: Alfred Marinelli MD DATE OF SERVICE: 10/17/2019 PREOPERATIVE DIAGNOSIS: Recently diagnosed left breast cancer, status post chemotherapy, here for port removal. POSTOPERATIVE DIAGNOSIS: Recently diagnosed left breast cancer, status post chemotherapy, here for port removal. PROCEDURE PERFORMED: Port-A-Cath removal. ANESTHESIA: IV sedation, local 0.25% Marcaine. COMPLICATIONS: None. DESCRIPTION OF PROCEDURE: With the patient under general anesthesia, the port site was prepped and draped in sterile fashion. Preoperative IV antibiotic was administered. The old incision was used. The catheter was found in the subcutaneous tissue and then the catheter was extracted from the vein. Pressure was held over this area, no bleeding. The port was then removed along with the surrounding capsule. Cautery was used to dissect the port out without difficulty. Irrigation was performed. Subcutaneous tissue was closed with 4-0 PDS. Skin was closed with 5-0 PDS. Dermabond was applied. 4 x 4, OpSite used for dressing. The patient tolerated the procedure well. By: 1454 1723 Jak Stone MD /pam
[2019-10-17 09:11] LABS: HEMATOCRIT 35.1 % (37.0-47.0); HEMOGLOBIN 11.4 gm/dL (12.0-15.0)
[2019-10-17 09:25] LABS: CALCIUM 9.5 mg/dL (8.5-10.1); CREATININE 1.9 mg/dL (0.6-1.0); POTASSIUM 3.7 mmol/L (3.5-5.1)
[2019-10-17 09:32] LABS: ALBUMIN 3.4 g/dL (3.4-5.0); TOTAL BILIRUBIN 0.5 mg/dL (<0.1-1.0); TOTAL PROTEIN 6.2 g/dL (6.4-8.2)
[~2019-10-17 10:00] MED LIST changes: -NORCO 5-325 TA1 EAC1 PO
[2019-10-17 10:21] VITALS: BP 147/49
[2019-10-17] MEDS ORDERED: NORCO 5-325 TA1 EAC1 PO (11:16)
[2019-10-17 11:35] VITALS: BP 147/49
== END 2019-10-17 11:19 | disposition home or self-care (01) ==
LOC: OR 10:00
PROVIDERS: Surgery
DX: Z45.2 Encounter for adjustment and management of vascular access device (principal); C50.912 Malignant neoplasm of unspecified site of left female breast; I10 Essential (primary) hypertension; E11.9 Type 2 diabetes mellitus without complications; K21.9 Gastro-esophageal reflux disease without esophagitis; E78.5 Hyperlipidemia, unspecified; M10.9 Gout, unspecified; G47.33 Obstructive sleep apnea (adult) (pediatric); E03.9 Hypothyroidism, unspecified; Z98.890 Other specified postprocedural states; Z79.899 Other long term (current) drug therapy; Z88.8 Allergy status to other drugs, medicaments and biological substances; Z79.82 Long term (current) use of aspirin; Z88.0 Allergy status to penicillin; Z87.19 Personal history of other diseases of the digestive system
CPT/HCPCS: 50010; 50101; 62110; 62850; 70005

== ENCOUNTER → 2019-10-17 | Outpatient (CLI) | payer OTHER | LOC: NUC 08:00 | DX: M85.89 Other specified disorders of bone density and structure, multiple sites (principal); C50.912 Malignant neoplasm of unspecified site of left female breast; Z78.0 Asymptomatic menopausal state | CPT/HCPCS: 50386; 50403; 54118; 56525; 56526 ==

== ENCOUNTER 2020-06-23 18:29 | Emergency (ER) | payer OTHER ==
[~2020-06-23] VITALS: Ht 162.6 cm; Wt 104.3 kg
[~2020-06-23 18:29] MED LIST changes: +NORCO 5-325 TA1 EAC1 PO
[2020-06-23 19:46] LABS: ABSOLUTE NEUTROPHILS 3.1 thou/uL (1.4-8.2); BASOPHILS 0.5 % (0.0-2.0); EOSINOPHILS 1.1 % (0.0-3.0); HEMATOCRIT 28.6 % (37.0-47.0); HEMOGLOBIN 9.4 gm/dL (12.0-15.0); LYMPHOCYTES 28.4 % (24.0-44.0); MCH 29.4 pg (26.0-34.0); MCHC 32.8 g/dL (28.0-37.0); MCV 89.5 fL (80.0-100.0); MONOCYTES 6.8 % (1.0-8.0); PLATELET COUNT 211 thou/uL (150-400); POLYS 63.2 % (36.0-66.0); WBC 4.8 thou/uL (4.0-11.0)
[2020-06-23 19:48] LABS: ANION GAP 9 mmol/L (7-16); BUN 22 mg/dL (7-18); CALCIUM 9.9 mg/dL (8.5-10.1); CHLORIDE 103 mmol/L (98-107); CO2 30 mmol/L (21-32); CREATININE 1.2 mg/dL (0.6-1.0); GLUCOSE 111 mg/dL (74-106); POTASSIUM 3.5 mmol/L (3.5-5.1); SODIUM 142 mmol/L (136-145)
[2020-06-23 20:02] LABS: ALBUMIN 3.1 g/dL (3.4-5.0); DIRECT BILIRUBIN 0.2 mg/dL (<0.1-0.2); LIPASE 97 U/L (73-393); SGOT 25 U/L (15-37); SGPT 16 U/L (30-65); TOTAL BILIRUBIN 0.7 mg/dL (0.2-1.0); TOTAL PROTEIN 7.4 g/dL (6.4-8.2); TROPONIN-I <0.06 ng/mL (<0.06)
[2020-06-23 22:48] LABS: URINE BILIRUBIN NEGATIVE (Negative); URINE BLOOD 2+ (Negative); URINE CLARITY CLEAR; URINE COLOR YELLOW; URINE GLUCOSE-RANDOM* NEGATIVE (Negative); URINE KETONES NEGATIVE (Negative); URINE NITRITE-REFLEX NEGATIVE (Negative); URINE PROTEIN (DIPSTICK) NEGATIVE (Negative); URINE SPECIFIC GRAVITY 1.025 (1.005-1.035); URINE UROBILINOGEN 0.2 E.U./dl (0.2-1.0)
[2020-06-23 22:52] LABS: URINE LEUKOCYTES-REFLEX 1+ (Negative)
[2020-06-23 22:54] LABS: BACTERIA-REFLEX 1-9 Few /HPF (None Seen); MUCUS 0-3 Light strn/LPF (None Seen); SQUAMOUS 0-3 Few /LPF (0-3); URINE WBC-REFLEX 6-15 Few /HPF (0-5); WBC CLUMPS Few (None Seen)
[2020-06-23 22:55] LABS: CRYSTALS None Seen /LPF (None Seen); HYALINE CASTS 0-3 Few /LPF (None Seen)
[2020-06-23] MEDS ORDERED: LEVOFLOXACIN750 MG PO (23:14)
[2020-06-23 23:29] VITALS: BP 150/60
--- NOTE | 2020-06-24 08:37 | EKG ---
[facility] [place] [address] ELECTROCARDIOGRAM REPORT Name: ONUR JACKSON Room #: [facility]#: [id number] Admission: 06/23/20 Attend Phys: Discharge: 06/23/20 Date of : 46 Report #: [id number] THIS REPORT FOR: cc: George Pagan MD, Christopher B. MD Lundgren,William Moncada MD [facility] ~ THIS REPORT FOR: //name// [facility] ED Test Date: 2020-06-23 Test Time: 20:11:08 Pat Name: ONUR JACKSON Department: Room: Gender: F Presales Engineer: [facility] : 1950 Requested By: Flora Brown Order Number: [id number] MD: William Suazo Measurements Intervals [place] Rate: 53 P: 41 SD: 196 QRS: -14 QRSD: 83 T: 88 QT: 527 QTc: 495 Interpretive Statements Sinus rhythm Inferior infarct, old Probable anteroseptal infarct, old Compared to ECG 04/04/2019 07:22:43 Poor R wave progression is now present Electronically Signed On 06-24-2020 8:37:19 CDT by William Suazo [email or web address] <ELECTRONICALLY SIGNED> By: William Suazo MD, FACC 06/24/20 0837 10 10 William Suazo MD, FAC /EPI
== END 2020-06-23 23:36 | disposition home or self-care (01) ==
LOC: ER 18:29
PROVIDERS: Emergency Medicine
DX: N39.0 Urinary tract infection, site not specified (principal); J06.9 Acute upper respiratory infection, unspecified; I10 Essential (primary) hypertension; E11.9 Type 2 diabetes mellitus without complications; E78.5 Hyperlipidemia, unspecified; Z90.49 Acquired absence of other specified parts of digestive tract; Z90.710 Acquired absence of both cervix and uterus; Z90.89 Acquired absence of other organs; Z79.4 Long term (current) use of insulin; Z79.899 Other long term (current) drug therapy; Z88.0 Allergy status to penicillin; Z88.1 Allergy status to other antibiotic agents; Z91.018 Allergy to other foods; Z91.030 Bee allergy status; Z91.048 Other nonmedicinal substance allergy status

== ENCOUNTER → 2020-06-30 | Outpatient (CLI) | payer OTHER ==
[~2020-06-30] MED LIST changes: +ARIMIDEX PO; +LEVOFLOXACIN750 MG PO; +NEURONTIN300 MG PO; +TRULICITY3 MG/0.5 M SUBQ
== END ==
LOC: LAB 09:28
PROVIDERS: ATTEND Specialist
DX: Z01.812 Encounter for preprocedural laboratory examination (principal); Z20.828 Contact with and (suspected) exposure to other viral communicable diseases

== ENCOUNTER → 2020-07-02 | Outpatient (CLI) | payer OTHER ==
[~2020-07-02] VITALS: Ht 165.1 cm; Wt 102.1 kg
--- NOTE | 2020-07-04 10:20 | P ---
[facility] [place] [address] PROCEDURE REPORT Name: ONUR JACKSON Room #: REG [facility] Jose.#: [id number] Admission: 07/02/20 Attend Phys: Too Randle Discharge: Date of : 46 Report #: [id number] THIS REPORT FOR: cc: George Pagan MD,Too Rose MD, MD ~ CC: GEORGE Marinelli MD DATE OF SERVICE: 07/02/2020 PROCEDURE PERFORMED: Upper endoscopy with biopsies and esophageal dilation. HISTORY OF PRESENT ILLNESS: The patient is a 70-year-old female with a history of gastroesophageal reflux disease. He has been on Prilosec for approximately a year, continues to have burning type abdominal pain in her mid epigastrium, also with intermittent dysphagia. She has tried Carafate on a p.r.n. basis, which has not been helpful. She also reports nausea and vomiting. She does have a history of insulin-dependent diabetes. Denies any NSAID use. DESCRIPTION OF PROCEDURE: The risks and benefits of the procedure were explained to the patient, those risks including but not limited to bleeding, perforation and the risk of sedation. She understood these risks and gave informed consent. Sedation was given using propofol per anesthesia. Next, using a standard Olympus upper endoscope, the scope was placed in the patient's mouth and advanced under direct vision through the esophagus, stomach and into the second portion of the duodenum. The larynx was normal in appearance. The upper and mid esophagus was normal. In the distal esophagus at the GE junction, grade B erosive esophagitis was noted. No evidence of stricture. Upon entering the stomach, a small hiatal hernia was noted. Overall, the gastric mucosa was normal. Because of her symptoms, biopsies were obtained to rule out the possibility of H. pylori. Pylorus was normal and patent. The duodenal bulb, first and second portion were all normal. Biopsies were also obtained to rule out the possibility of celiac sprue. The scope was then brought back up into the patient's stomach and a Savary guidewire was inserted through the scope, leaving the guidewire in place as the scope was withdrawn. Next, a 48-Cameroonian dilation of the esophagus was then performed without difficulty. The wire and dilator removed. The scope was reintroduced into the patient's stomach. There was no evidence of mucosal tear after dilation. The scope was then withdrawn and the procedure terminated. The patient tolerated the procedure well. IMPRESSION: 1. Grade B erosive esophagitis. 2. Small hiatal hernia. [facility] [address] [place] [address] PROCEDURE REPORT Name: ONUR JACKSON Room #: REG [facility]#: [id number] Admission: 07/02/20 Attend Phys: Too Randle Discharge: Date of : 46 Report #: [id number] 3. Otherwise, normal upper endoscopy. RECOMMENDATIONS: 1. Await biopsy results. 2. Recommend b.i.d. PPI therapy and add Carafate q.i.d. for the next 2 weeks. 3. Observe the patient post-dilation. 4. If the patient has continued symptoms, may need to consider gastric emptying study. Thank you for allowing me to participate in her care. <ELECTRONICALLY SIGNED> By: Too Gilbert MD 07/04/20 1020 0920 1833 Too Gilbert MD /nt
--- NOTE | 2020-07-05 17:06 | PATH ---
[facility] [place] [address] PATHOLOGY RPT PROCEDURE Name: COLETTE JACKSON Room #: REG [facility] Jose.#: [id number] Admission: 07/02/20 Date of : 46 Discharge: Report #: [id number] Path Case #: [id number] [facility] Accession Number: [id number] . 01 Material submitted: . PART A: duodenum - BIOPSY OF DUODENUM R/O SPRUE PART B: stomach - BIOPSY OF GASTRITIS R/O H. PYLORI . 01 Clinical history: . ABDOMINAL PAIN, N/V GASTRIC ULCER . 02 Diagnosis: A. Small bowel mucosa, duodenum, endoscopic biopsy: - No significant diagnostic abnormality present. - Negative for villous blunting or increase in intraepithelial lymphocytes. . B. Gastric mucosa, gastritis rule out H. pylori, endoscopic biopsy: - Mild chronic gastritis with features of reactive gastropathy. - Negative for intestinal metaplasia or atrophy. - Negative for Helicobacter pylori (properly controlled immunohistochemical stain performed). (IUV/db; 07/05/2020) LBQ 07/05/2020 1455 Local . 02 Electronically signed: . Falguni Amado MD, Pathologist NPI- [id number] . 01 Gross description: . A. Received in formalin labeled "Colette Jackson, BX duodenum rule out sprue" are multiple boateng-brown soft tissue fragments measuring in aggregate 0.8 x 0.6 x 0.1 cm. The specimen is submitted entirely in A1. . B. Received in formalin labeled "Ethan, Colette, BX of gastritis rule out H. pylori" are multiple boateng-brown soft tissue fragments measuring in aggregate 0.8 x 0.5 x 0.1 cm. The specimen is submitted entirely in B1. ([facility] 07/03/2020) [facility] 07/03/2020 1050 Local . 02 Pathologist provided ICD-10: K29.50, R10.9, K25.9 . 02 CPT . 239627, 845974, [id number] Specimen Comment: A courtesy copy of this report has been sent to [phone], [place] [address] PATHOLOGY RPT PROCEDURE Name: COLETTE JACKSON Room #: REG [facility] Ari#: [id number] Admission: 07/02/20 Date of : 46 Discharge: Report #: [id number] Path Case #: [id number] Specimen Comment: [id number] Specimen Comment: Report sent to / DR LOCKE Performed at: [address], [place] [id number] MD Benigno Salazar MD Phone: [phone] Performed at: [address] [id number] MD Falguni Amado MD Phone: [phone]
== END | disposition home or self-care (01) ==
LOC: GI 07:34
PROVIDERS: ATTEND Specialist
DX: R10.13 Epigastric pain (principal); K29.50 Unspecified chronic gastritis without bleeding; K31.9 Disease of stomach and duodenum, unspecified; K22.10 Ulcer of esophagus without bleeding; K44.9 Diaphragmatic hernia without obstruction or gangrene; R11.2 Nausea with vomiting, unspecified; R13.10 Dysphagia, unspecified; I10 Essential (primary) hypertension; E11.9 Type 2 diabetes mellitus without complications; E78.5 Hyperlipidemia, unspecified; G47.30 Sleep apnea, unspecified; D64.9 Anemia, unspecified; Z98.890 Other specified postprocedural states; Z79.899 Other long term (current) drug therapy; Z79.4 Long term (current) use of insulin; Z87.891 Personal history of nicotine dependence; Z85.3 Personal history of malignant neoplasm of breast; Z90.710 Acquired absence of both cervix and uterus; Z90.49 Acquired absence of other specified parts of digestive tract
CPT/HCPCS: 62110; 62900

== ENCOUNTER 2020-10-19 14:53 | Inpatient (IN) | payer OTHER ==
[~2020-10-19] VITALS: Ht 162.6 cm; Wt 104.3 kg
[2020-10-19 15:00] VITALS: BP 111/60
[2020-10-19 16:59] LABS: ABSOLUTE NEUTROPHILS 5.4 thou/uL (1.4-8.2); BASOPHILS 0.2 % (0.0-2.0); EOSINOPHILS 2.3 % (0.0-3.0); HEMATOCRIT 28.5 % (37.0-47.0); HEMOGLOBIN 9.1 gm/dL (12.0-15.0); LYMPHOCYTES 18.7 % (24.0-44.0); MCH 28.3 pg (26.0-34.0); MCV 88.5 fL (80.0-100.0); MONOCYTES 5.7 % (1.0-8.0); PLATELET COUNT 225 thou/uL (150-400); POLYS 73.1 % (36.0-66.0); RBC 3.22 mil/uL (4.20-5.00); RDW 17.8 % (10.5-14.5); WBC 7.4 thou/uL (4.0-11.0)
[2020-10-19 17:09] LABS: ANION GAP 8 mmol/L (7-16); BUN 31 mg/dL (7-18); CALCIUM 10.1 mg/dL (8.5-10.1); CHLORIDE 95 mmol/L (98-107); CO2 31 mmol/L (21-32); CREATININE 1.6 mg/dL (0.6-1.0); GLUCOSE 202 mg/dL (74-106); POTASSIUM 4.3 mmol/L (3.5-5.1); SODIUM 134 mmol/L (136-145)
[2020-10-19 17:20] LABS: TROPONIN-I <0.06 ng/mL (<0.06)
[2020-10-19 18:24] LABS: AMP/METHAMP Negative (Negative); BARBITURATES Negative (Negative); BENZODIAZEPINES Negative (Negative); COCAINE Negative (Negative); METHADONE Negative (Negative); OPIATES POSITIVE (Negative); PCP Negative (Negative)
[2020-10-19 19:15] LABS: URINE BILIRUBIN NEGATIVE (Negative); URINE BLOOD TRACE (Negative); URINE CLARITY CLEAR; URINE COLOR YELLOW; URINE GLUCOSE-RANDOM* NEGATIVE (Negative); URINE KETONES NEGATIVE (Negative); URINE LEUKOCYTES-REFLEX NEGATIVE (Negative); URINE NITRITE-REFLEX NEGATIVE (Negative); URINE PROTEIN (DIPSTICK) NEGATIVE (Negative); URINE UROBILINOGEN 0.2 E.U./dl (0.2-1.0)
[2020-10-19 20:58] VITALS: BP 116/42
[2020-10-19 21:38] VITALS: BP 110/35
[2020-10-19 22:56] VITALS: BP 129/40
--- NOTE | 2020-10-20 02:01 | NUR ---
Pt admitted from ED with chest wall mass/AMS. Pt is A/OX4 with forgertfulness noted. VSS,c/o left chest pain;lump felt on palpation LOP 7/10. Pain not reliefed by Tramadol,[employer] notified and order given for Fentanyl 25mcg PRN Q4 prn. Pt is up with AX1 GB/RW to BSC. Yeasty with excoriation under pannus;order for Nystatin powder obtained. Fall precautions in place,pt calls approp for help. Pt can't remember the home meds she has been taking,contacted dtr Paulette who'll bring copy during the day.
[2020-10-20 04:00] VITALS: BP 118/45
[2020-10-20 06:01] LABS: HEMATOCRIT 25.1 % (37.0-47.0); HEMOGLOBIN 8.2 gm/dL (12.0-15.0); MCHC 32.6 g/dL (28.0-37.0); MCV 89.1 fL (80.0-100.0); RBC 2.82 mil/uL (4.20-5.00); RDW 17.6 % (10.5-14.5); WBC 5.2 thou/uL (4.0-11.0)
[2020-10-20 06:26] LABS: CALCIUM 9.4 mg/dL (8.5-10.1); CREATININE 1.4 mg/dL (0.6-1.0); POTASSIUM 3.8 mmol/L (3.5-5.1)
--- NOTE | 2020-10-20 07:00 | EKG ---
[address] [address] ELECTROCARDIOGRAM REPORT Name: ONUR JACKSON Room #: 452-P [facility] IN .R.#: [id number] Admission: 10/19/20 Attend Phys: Christiano Dudley MD Discharge: Date of : 46 Report #: [id number] [facility]ly [facility] ED Test Date: 2020-10-19 Test Time: 16:29:08 Pat Name: ONUR JACKSON Department: Room: [facility] Gender: F Industrial Boilermaker: jenny : 1950 Requested By: Alessandro Brito Order Number: [id number] MD: Cliff Christiansen Measurements Intervals [place] Rate: 55 P: 40 VA: 183 QRS: -18 QRSD: 89 T: 28 QT: 463 QTc: 443 Interpretive Statements Sinus rhythm Inferior infarct, old Probable anteroseptal infarct, old Compared to ECG 06/23/2020 20:11:08 No significant changes Electronically Signed On 10-20-2020 7:00:42 ELECTRICAL PROSPECTING OPERATOR by Cliff Christiansen [email or web address] <ELECTRONICALLY SIGNED> By: Cliff Christiansen MD, [facility] 10/20/20 0700 28 28 Cliff Christiansen MD, [facility] /EPI
--- NOTE | 2020-10-20 07:41 | NUR ---
PT STATED SHE WAS IN PAIN ON LEFT SIDE OF CHEST OF 7 ON 1-10 SCALE. PT HAS FIRM AREA IN LEFT SIDE OF CHEST WALL. ASKED PT HOW LONG SHE HAS HAD THIS THERE, SHE STATED SHE HAS HAD FOR AT LEAST A YEAR AND THE DIDN'T LISTEN TO HER. ADM TRAMADOL 50MG PO FOR PAIN TO LEFT CHEST. THIS AFFECTS PT ABILITY TO LIFT SELF UP OUT OF BED. PT NEEDS TO BE PULLED UP X1-2 PERSON, PT ALSO WANTS TO SIT UP MORE IN BED TO TAKE PO MEDS. PT HAS PAIN EVEN WITH HOB MOVING UP. PT WANTED SCD'S OFF FOR A LITTLE BIT. PT COMPLAINS OF PAIN TO RT TOE. PT STATED SHE DOES HAVE GOUT AND SHE TAKES MEDS NEEDED. RT TOE DID LOOK MORE SWOLLEN AND PINK. PT POSS GETTING BIOPSY TODAY, NPO FOR TILL TEST. PT DID HAVE SOME EGGS OFF BREAKFAST TRAY AND FRUIT.
[2020-10-20 08:53] VITALS: BP 127/39
[2020-10-20 10:14] LABS: APTT 27.8 Seconds (24.5-32.8); PROTIME 10.6 Seconds (9.3-11.4)
--- NOTE | 2020-10-20 13:30 | NUR ---
PT STATED SHE HAS PAIN TO LEFT CHEST WALL. ADM DILAUDID 2MG PO FOR PAIN OF 6 ON 1-10 SCALE. PT WAS GOING TO HAVE BIOPSY TODAY, NEED ACUTAL IMAGES FROM DIAGNOSTIC IMAGING. DID RECIEVE PAPER COPY OF CT SCAN. WILL POSS HAVE PROCEDURE TOMMORROW.
--- NOTE | 2020-10-20 14:53 | NUR ---
PT ADMITTED RELATED TO CHEST MASS AND AMS. CM REVIEWED CHART AND SPOKE WITH CARE TEAM. CM VISITED WITH PT AT BEDSIDE THIS DAY. PT APPEARED TO BE A&O X4. CM ROLE INTRODUCED. PT INDICATED SHE RESIDES IN A HOUSE WITH HER SPOUSE. PT INDICATED THERE ARE STAIR GLIDES TO ENTER HOME AND INSIDE THAT SHE AND SPOUSE USE. PT INDICATED SHE HAS A FWW ON UPPER LEVEL AND 4WW ON LOWER LEVEL AND THAT SHE USES 4WW WHEN SHE LEAVES THE HOUSE. PT HAD CPAP FOR HOME USE. PT HAD USED [facility] WHEN HERE LAST IN 2019. PT HAS PROVIDED CARE AND ASSISTANCE TO SPOUSE IN THE HOME HE IS WC BOUND AND HALF BLIND PER HER REPORT. PT INDICATED SHE WOULD BE RECEPTIVE TO HH SERVICES IS NEEDED UPON DC. PT TO HAVE BIOPSY IN IR AWAITING CLOUDED IMAGES OF SCANS FOR REVIEW. PT ASKED THAT CM SPEAK WITH HER DTR RENETTA REGARDING POSSIBLE DC TOMORROW. CM SPOKE WITH RENETTA AND REVIEWED PT EVAL WHICH RECOMMENDED POST ACUTE CARE STAY. DTR AND PT RECEPTIVE TO 5N CONSULT. CM NOTIFIED 5N LIAISON. THEY ARE TO CONSULT. OT ORDERED. CM TO FOLLOW INDICATED WITH DC PLANNING.
--- NOTE | 2020-10-20 15:15 | NUR ---
PT STATED SHE IS HAVING PAIN TO LEFT CHEST WALL AT 7 ON 1-10 SCALE. PT PAIN DID GET TO 4 TODAY. ADM OXYCODONE 5MG 2 TABS FOR PAIN.
[2020-10-20 15:57] VITALS: BP 124/46
--- NOTE | 2020-10-20 17:30 | NUR ---
PT FAMILY HERE AND STATED SHE IS IN BETTER SPIRITS THAN WHEN SHE IS IN PAIN. PT SEEMS TO HAVE BETTER PAIN CONTROL. PT SITTING ON SIDE OF BED, PT DOES LIKE HER INSULIN IN HER ABD.
[2020-10-20 20:38] VITALS: BP 117/42
--- NOTE | 2020-10-21 05:18 | NUR ---
ASSUMED CARE OF PT AT 1900HRS. PT AOX4 AND LETS NEEDS BE KNOWN. FALL PRECAUTION IN PLACE. PT REPORTED PAIN AND WAS TREATED WITH PRN PAIN MEDS. ASSESSMENT CHARTED. PT PLACED NPO AT MIDNIGHT FOR PROCEDURE IN THE AM. VSS AND NO S/S OF ACUTE DISTRESS. PT SLEPT PART OF THE SHIFT. WILL CONTINUE TO MONITOR.
[2020-10-21 06:03] LABS: ABSOLUTE RETIC COUNT 0.1145 10^6/uL; OBSERVED RETIC COUNT 4.36 % (0.6-2.6)
[2020-10-21 06:13] LABS: ALBUMIN 2.6 g/dL (3.4-5.0); CALCIUM 9.2 mg/dL (8.5-10.1); CREATININE 1.1 mg/dL (0.6-1.0); POTASSIUM 4.2 mmol/L (3.5-5.1)
[2020-10-21 06:17] LABS: % SATURATION 20 % (20-39); IRON 51 ug/dL (50-170); TIBC 251 ug/dL (250-450)
[2020-10-21 06:34] LABS: FOLIC ACID 23.4 ng/mL (8.6-58.9)
[2020-10-21 08:07] VITALS: BP 125/51
[2020-10-21] MEDS ORDERED: OXYCODONE HCL10 MG PO ×2 (09:01)
[2020-10-21] MEDS ORDERED: COZAAR100 MG PO ×2 (09:01)
--- NOTE | 2020-10-21 09:19 | HC ---
[facility] [place] [address] CONSULTATION Name: ONUR JACKSON Room #: 452-P ADM IN M.R.#: [id number] Admission: 10/19/20 Attend Phys: Stella Valencia Discharge: Date of : 46 Report #: [id number] THIS REPORT FOR: cc: George Pagan MD, Christopher B. MD McKittrick, Richard James MD ~ REASON FOR CONSULTATION: History of breast cancer with questionable sternal mass. HISTORY OF PRESENT ILLNESS: The patient is a very pleasant 70-year-old female who was admitted for questionable mental status changes and pain management. She recently had had a CAT scan, raising concern about recurrence of her breast cancer. She originally had her 5 node positive 8 cm breast cancer in March 2019. Recently, she has been having progressive chest discomfort and a CAT scan done at diagnostic imaging showed an anterior chest wall mass measuring approximately 8.4 x 3.3 x 5.5 cm and also some enlarging left axillary lymph nodes. Plans have been made for an Interventional Radiology outpatient biopsy at [place] as well as a PET scan. These have not been completed yet. The patient has been having progressive pain. She has been taking some mild narcotics from what I believe it is either tramadol or hydrocodone, but had been becoming goofy with this with poor main management. CT head yesterday was done and it appears to be without acute changes. Her lab from yesterday was notable for a CBC with progressive anemia with a hemoglobin of 9.1, previously had been in the mid 10s, her white count is 7.4, platelets 225. Her BMP had a calcium of 10.1, creatinine of 1.6. Glucose of 202. Today, the patient is still having significant chest wall discomfort. She is a bit nonfocus on her interaction, which is little bit abnormal for her. She denies any headache. Does not have any swallowing troubles at this time, has not had any blood in her urine or stool. Does have some chronic mild edema. No significant abdominal discomfort. She reports her family has been doing well. PAST MEDICAL HISTORY: Notable for the history of left-sided breast cancer from 04/08/2019. She had bilateral mastectomies on that date. This was found to be at 8.5 cm moderately differentiated ductal carcinoma that was ER 90%, VA 70%, HER2 negative breast cancer. 5 of 10 lymph nodes were involved with extracapsular extension. She would be a pathologic prognostic stage IB, clinical prognostic stage 2A, and an anatomic stage group 3A. She did receive Adriamycin, Cytoxan with growth factor support completed on 07/09/2019 and then received Taxol for about 6 weeks, but had progressive neuropathy and it was stopped. She then completed radiation therapy to the chest wall on about 11/24/2019 and then began Arimidex after that. As mentioned above, she unfortunately had the recent CAT scan, raised new question of sternal recurrence with plans for outpatient Interventional Radiology biopsy as well as imaging to look for occult disease. Her other history is notable for depression, peripheral neuropathy, partly due to diabetes, but worsened by her chemotherapy, [address] [address] CONSULTATION Name: ONUR JACKSON Room #: 452-P ADM IN M.R.#: [id number] Admission: 10/19/20 Attend Phys: Stella Valencia Discharge: Date of : 46 Report #: [id number] type 2 diabetes, dyslipidemia, hypothyroidism, sleep apnea, hypothyroidism, history of erosive esophagitis with erosive grade B esophagitis on 06/2020 with improvement with acid blockers, also history of gout and hypertension. FAMILY HISTORY: Mother had diabetes, heart disease, hypertension, rheumatoid arthritis. Father had kidney cancer. A sister had colon polyps, breast cancer, diabetes and hypertension. A brother had cancer of the prostate and diabetes. Another brother had prostate cancer, another brother had prostate cancer. Maternal grandmother had breast cancer. Paternal aunt had cancer, but not sure what type. SOCIAL HISTORY: The patient is a former smoker and quit 15 years ago. She is a nondrinker, does not use street drugs. She has a spouse, Edward of 49 years and two children. RADIOLOGIC STUDIES: Include a CT head that showed no acute changes. A chest x-ray that showed no acute abnormalities, but did show some interstitial fibrosis in the left lung caicedo. MEDICATIONS: At this time in the hospital currently include insulin, nebivolol 10 mg at bedtime, Lovenox 40 mg at bedtime, hydromorphone added 2 mg q.4 p.r.n. pain, furosemide 20 mg daily, gabapentin 300 b.i.d., losartan 100 daily, nystatin apply under abdominal fold b.i.d., oxycodone p.r.n., sucralfate 1 gram q. 12 p.r.n., pantoprazole 40 daily, and sliding scale insulin. PHYSICAL EXAMINATION: GENERAL: The patient appears her stated age. VITAL SIGNS: Height is 5 feet 4 inches, 162.6 cm. Weight 229 pounds or 104.282 kilograms. Blood pressure is 127/39, O2 sat 90%, respirations 15, pulse 61, temperature is afebrile at 98.1. MOOD: She is alert, pleasant, slight talkative. NEUROLOGIC: Speech and attention seems somewhat nonfocused and fuzzy. Moving arms and legs normally. LYMPHATICS: No enlarged lymph nodes in the supraclavicular or cervical region. There may be some slightly enlarged lymph nodes in left axilla, but it is hard to tell with postsurgical changes. She has quite a bit of tenderness over the sternal region. No obvious masses, though there are some subcutaneous changes that could be consistent with progressive disease or with post-mastectomy type changes. The patient thinks they are new. I think she is accurate about this, but I do not recall exam in this area from several months ago to either agree or contradict her. ABDOMEN: Obese. EXTREMITIES: Without clubbing, cyanosis. There is some trace edema. ASSESSMENT AND PLAN: [facility] [address] [place] [address] CONSULTATION Name: ONUR JACKSON Room #: [address] [place] [address] IN .R.#: [id number] Admission: 10/19/20 Attend Phys: Stella Valencia Discharge: Date of : 46 Report #: [id number] 1. History of breast cancer with possible/probable recurrence. The patient was at high risk with large tumor and quite a few lymph nodes involved. I talked with Dr. Valencia. He has plans to consult Interventional Radiology to see if they can perform the biopsy while she is here. We are very suspicious this is recurrence of her breast cancer. We would also like to complete additional staging either in or outpatient to ascertain whether she has distant metastasis. Doubt she would be a surgical candidate, but it could be entertained, but most likely need to consider switching to a different hormonal therapy such as Faslodex and palbociclib. 2. Pain control, has had difficulty with past narcotics, now have a trial of fentanyl, and will also give a trial of low-dose hydromorphone to see if we can find help her pain without making her cognitively impaired. If not, may need to consider pain consult or topical lidocaine or nerve blocking. 3. Mental status changes, most likely related to pain medication changes. A CT of head was unremarkable. Follow. 4. History of erosive esophagitis. Continue acid rosendo, pantoprazole as well as sucralfate. 5. History of depression. Defer meds to others. 6. Diabetes type 2. Continue sliding scale insulin and dietary management per others. 7. Lipidemia, meds per others. 8. Sleep apnea. Management per others. 9. Diabetic neuropathy. Continue meds. 10. Hypertension. Meds as needed. 11. Hypothyroid, replace as needed. <ELECTRONICALLY SIGNED> By: Ortiz Marinelli MD 10/21/20 0919 [id number] [id number] Ortiz Marinelli MD /nt
--- NOTE | 2020-10-21 12:15 | NUR ---
CM FOLOWED UP WIHT 5N THIS DAY AND THEY INDICATED THAT THEY CAN ACCEPT PT FOR ADMISSION THIS DAY. CM MET WITH PT AND DTR AT BEDSIDE THIS DAY. THEY ARE AWARE AND AGREEABLE. PT HAS PET SCAN SCHEDULED FOR Sunday10/26/20 AT 9:15 AT [facility]. CM NOTIFIED 5N ALLIED HEALTH PROFESSIONAL AND SHE INDICATED THAT THEY WOULD MAKE ACCOMADATIONS FOR PT'S DTR TO TAKE HER. CM NOTIFIED PT AND DTR. COVID TEST PENDING. ANTICPATED DC TO 5[facility] LATER THIS AFTERNOON. NO OTHER CM INTERVENTION INDICATED. CASE CLOSED.
[2020-10-21 15:32] VITALS: BP 138/53
--- NOTE | 2020-10-21 15:38 | NUR ---
ASSUMED PT CARE AT 0700. PT ALERT X ORIENTED X 2-3. ON 2L OF O2/NC. HAD CHEST WALL BIOPSY TODAY, PT TAKEN FOR THE PROCEDURE AT 0915 AND RETURNED BACK TO UNIT AT 1120. VSS. IV RT AC (LF ARM NOT USED DUE TO PREVIOUS H/O LYMPHNODE REMOVAL). ACHS.FALL PRECT IN PLACE. PT DAUGHTER IN THE ROOM FOR MOST OF THE DAY.
--- NOTE | 2020-10-21 16:24 | NUR ---
PT NOT GOING TO 5N THIS EVENING NOW NEEDING FINIANCIAL CLEARANCE FOR PT TO GO TO PET SCAN SUNDAY AND TO RETURN TO 5N. AWAITING INPUT. CM NOTIFIED PT AND DTR. CM TO FOLLOW INDICATED WITH DC PLANNING.
--- NOTE | 2020-10-21 17:44 | NUR ---
AFTER COMMUNICATION BETWEEN LAUNDRETTE OWNER, NURSE PRACTITIONER, OIL EXPELLER OPERATOR AND PATIENT'S KATHY MATHIAS, IT WAS DECIDED THAT PATIENT WOULD ADMIT TO ACUTE REHAB THIS DATE. NURSE PRACTITIONER WILL DISCUSS OPTIONS FOR TIMING OF THE PET SCAN WITH DR. Mix. IF DR. Mix IS IN AGREEMENT FOR SHORT DELAY TO ALLOW LONGER STAY, APPOINTMENT FOR PET SCAN WILL BE CHANGED. 5N AND 3W STAFF INFORMED OF PLANNED 2ND SHIFT ADMISSION. THANK YOU FOR THIS REFERRAL.
--- NOTE | 2020-10-21 19:48 | NUR ---
PATIENT MOVED TO REHAB, 5N. SHIFT REPORT GIVEN TO CRISTA (RN).
--- NOTE | 2020-10-29 13:08 | PATH ---
[facility] [address] [place] [address] PATHOLOGY RPT PROCEDURE Name: COLETTE JACKSON Room #: 452-P [facility] IN .R.#: [id number] Admission: 10/19/20 Date of : 46 Discharge: 10/21/20 Report #: [id number] Path Case #: [id number] LCA Accession Number: [id number] . 01 Material submitted: . chest - CHEST WALL MASS . 02 Diagnosis: Soft tissue (chest wall mass): - Fibroadipose tissue with fibrosis and changes of fat necrosis are identified. LBQ 10/28/2020 1417 Local . 02 Comment: I find no evidence of malignancy in this needle core biopsy. It represents a spindle form change in fat as well as collagenous fibrosis associated with remote fat necrosis. Due to the focal signet ringish appearance of the fat necrosis we undertook Villarreal-cytokeratin to exclude the presence of occult carcinoma. This is found to be negative. (SWK/db; 10/28/2020) . Villarreal-cytokeratin on A1: Negative . 02 Electronically signed: . Shubham Gómez MD, Pathologist NPI- [id number] . 01 Gross description: . The specimen is received in formalin, labeled "Colette Jackson, chest wall mass" and consists of delicate needle cores of yellow tissue measuring 1.4 x 0.6 x 0.1 cm in aggregate which are entirely submitted in A1. (SDY; 10/25/2020) SYU/SYU 10/25/2020 1307 Local . 02 Pathologist provided ICD-10: M79.9 . 02 CPT . 273892, R18680 Specimen Comment: Report sent to Performed at: 01 [facility] [address] [place] [address] [id number] MD Benigno Salazar MD Phone: [phone] Performed at: [address] [id number] [place] [address] PATHOLOGY RPT PROCEDURE Name: COLETTE JACKSON Room #: 452-P DIS IN M.R.#: [id number] Admission: 10/19/20 Date of : 46 Discharge: 10/21/20 Report #: [id number] Path Case #: [id number] MD Shubham Gómez MD Phone: [phone]
== END 2020-10-21 18:35 | DRG 682 ==
LOC: ER 14:53 → 4W 20:43 → EROBS 20:43 → 4W 21:40
PROVIDERS: Internal Medicine Hematology & Oncology; Nurse Practitioner; Radiology Vascular & Interventional Radiology; ADMIT Hospitalist; ATTEND Hospitalist
PROC: 5A09357 Assistance with Respiratory Ventilation, Less than 24 Consecutive Hours, Continuous Positive Airway Pressure (ICD-10-PCS; principal; 2020-10-20)
PROC: 5A09357 Assistance with Respiratory Ventilation, Less than 24 Consecutive Hours, Continuous Positive Airway Pressure (ICD-10-PCS; 2020-10-21)
PROC: 0WB83ZX Excision of Chest Wall, Percutaneous Approach, Diagnostic (ICD-10-PCS; 2020-10-21)
DX: N17.0 Acute kidney failure with tubular necrosis (principal); G93.41 Metabolic encephalopathy; K22.10 Ulcer of esophagus without bleeding; R22.2 Localized swelling, mass and lump, trunk; Z20.822 Contact with and (suspected) exposure to COVID-19; I10 Essential (primary) hypertension; K21.9 Gastro-esophageal reflux disease without esophagitis; E78.5 Hyperlipidemia, unspecified; F32.9 Major depressive disorder, single episode, unspecified; E11.42 Type 2 diabetes mellitus with diabetic polyneuropathy; E03.9 Hypothyroidism, unspecified; G47.33 Obstructive sleep apnea (adult) (pediatric); D64.9 Anemia, unspecified; M10.9 Gout, unspecified; I12.9 Hypertensive chronic kidney disease with stage 1 through stage 4 chronic kidney disease, or unspecified chronic kidney disease; E11.22 Type 2 diabetes mellitus with diabetic chronic kidney disease; N18.9 Chronic kidney disease, unspecified; T45.1X5A Adverse effect of antineoplastic and immunosuppressive drugs, initial encounter; Y92.89 Other specified places as the place of occurrence of the external cause; Z80.51 Family history of malignant neoplasm of kidney; Z79.4 Long term (current) use of insulin; Z87.442 Personal history of urinary calculi; Z90.49 Acquired absence of other specified parts of digestive tract; Z90.710 Acquired absence of both cervix and uterus; Z90.13 Acquired absence of bilateral breasts and nipples; Z88.8 Allergy status to other drugs, medicaments and biological substances; Z88.1 Allergy status to other antibiotic agents; Z91.02 Food additives allergy status; Z85.3 Personal history of malignant neoplasm of breast; Z83.3 Family history of diabetes mellitus; Z82.49 Family history of ischemic heart disease and other diseases of the circulatory system; Z82.61 Family history of arthritis; Z83.71 Family history of colonic polyps; Z80.42 Family history of malignant neoplasm of prostate
CPT/HCPCS: 10040

== ENCOUNTER 2020-10-21 14:50 | Inpatient (IN) | payer OTHER ==
[~2020-10-21] VITALS: Ht 162.6 cm; Wt 107.0 kg
--- NOTE | ~2020-10-21 | H ---
[facility] [place] [address] HISTORY AND PHYSICAL Name: ONUR JACKSON Room #: 515-P ADM IN M.R.#: [id number] Admission: 10/21/20 Attend Phys: Andrew Renee MD Discharge: Date of : 46 Report #: [id number] THIS REPORT FOR: cc: George Pagan MD, Christopher B. MD Smithson,Andrew Stern MD ~ DATE OF SERVICE: 10/21/2020 ADDENDUM HISTORY OF PRESENT ILLNESS: Please see the documented history and physical. I agree with the findings and examination as noted. 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 She was admitted and noted to have concern for probable recurrence with recent CT imaging as an outpatient showing possible tumor versus infection. She had Interventional Radiology guided biopsy on 10/21/2020 with results pending. Plan is for a PET scan as an outpatient. She was admitted with an acute metabolic encephalopathy. Please see the above noted prior medical history, social history, allergies, habits. MEDICATIONS: See the MAR. REVIEW OF SYSTEMS: Please see the full 14-point system. She had some nausea earlier and had Zofran given. No complaints currently. She has some chest wall discomfort after the Interventional Radiology biopsy yesterday as expected. No shortness of breath, abdominal discomfort. She has the chronic neuropathic complaints. PHYSICAL EXAMINATION: GENERAL: She is alert, overweight, pleasant, in no obvious distress. VITAL SIGNS: Vitals are as noted. Temperature 36.7, pulse 53, respirations 17, blood pressure 140/43. She is alert, follows basic 1 step commands. She is on nasal prong O2. HEENT: Facies are symmetric. CHEST: Some decreased breath [id number] throughout. CARDIOVASCULAR: Regular rate and rhythm. ABDOMEN: Obese, bowel sounds positive, nontender. GENITOURINARY AND RECTAL: Deferred. NEUROMUSCULOSKELETAL: No focal calf swelling. No palpable cord. Functional range of motion of both upper extremities with strength probably a grade 4-/5. Lower extremities with functional range of motion, strength is probably a grade 3+ to 4-/5. She is min assist to mod assist to come to stand and is ambulating a few steps with a front-wheeled walker. She has some slowed processing, but will follow basic 1 step commands. [facility] [address] [place] [address] HISTORY AND PHYSICAL Name: ONUR JACKSON Room #: 515-P [facility] IN [facility]#: [id number] Admission: 10/21/20 Attend Phys: Andrew Renee MD Discharge: Date of : 46 Report #: [id number] ASSESSMENT: A 70-year-old white female with the following problem list: 1. Toxic metabolic encephalopathy. 2. Weakness with gait instability. 3. Premorbid peripheral neuropathy, chemotherapy-induced. 4. Chest mass, probable breast cancer recurrence. 5. Diabetes mellitus type 2. 6. Anemia. 7. Obstructive sleep apnea. 8. History of erosive esophagitis vaginitis and esophageal dilatation. 9. Hypertension. 10. Hyperlipidemia. PLAN: The patient has been admitted for acute in-hospital inpatient rehabilitation. Please see the patient's previous and current functional status. As far as risk of complications, this includes the multiple medical comorbidities as noted above. Initial plan of care involves the interdisciplinary acute inpatient rehabilitation program. Prognosis is reasonably good from a rehabilitation perspective with estimated length of stay, hopefully within a week to 10 days that she does need to be discharged and have that outpatient PET scan. Her diagnosis is appropriate for an acute inpatient rehabilitation stay. She meets the medical necessity criteria. We will have the multiple physician practice consultant physicians continue to follow. She does have the tolerance for therapies and has appropriate discharge goals back to the home setting. By: [id number] Andrew Renee MD /PMT
--- NOTE | ~2020-10-21 | PLAN ---
[facility] [place] [address] REHAB UNIT PLAN OF CARE Name: ONUR JACKSON Room #: 515-P ADM IN M.R.#: [id number] Admission: 10/21/20 Attend Phys: Andrew Renee MD Discharge: Date of : 46 Report #: [id number] THIS REPORT FOR: cc: George Pagan MD, Christopher B. MD Smithson,Andrew Stern MD ~ DATE OF SERVICE: 10/23/2020 PROGRESS NOTE AND OVERALL PLAN OF CARE SUBJECTIVE: The patient was seen back earlier, was in no distress. Temperature 36.5, pulse 50, respirations 20, blood pressure 131/45. She has been on 2 liters nasal cannula. She has been working in therapies with transfers, mod assist; gait 50 feet mod assist with a front-wheeled walker. In occupational therapy, lower body dressing is moderate assistance with upper body dressing, standby assistance. Speech therapy is working with her as well with [id number] cognitive deficits and moderate memory deficits. ASSESSMENT: 1. Toxic metabolic encephalopathy. 2. Weakness with gait instability. 3. Premorbid peripheral neuropathy, chemotherapy-induced. 4. Chest mass with probable breast cancer recurrence. 5. Diabetes mellitus type 2. 6. Anemia. 7. Obstructive sleep apnea with home CPAP. 8. History of erosive esophagitis and esophageal dilatation. 9. Hypertension. 10. Hyperlipidemia. PLAN: The overall plan of care is based on the preadmission screen and information garnered from therapy assessments. 1. Estimated length of stay is probably at least 10-14 days. 2. Medical prognosis is reasonably good. 3. Anticipated interventions includes the interdisciplinary acute inpatient rehabilitation program. 4. Anticipated functional outcomes would be for the patient to become modified independent with transfers, mobility, ADLs, improved cognition, so she can return back to the home setting. 5. Discharge destination would be back to the home setting where she lives with her . He is disabled. There is a daughter that is involved in assisting as well. 6. Expected therapy by discipline includes PT, OT and speech 1 hour per day each five days a week throughout the duration of the acute inpatient rehabilitation stay. [address] [address] REHAB UNIT PLAN OF CARE Name: ONUR JACKSON Room #: 515-P [facility] IN [facility].#: [id number] Admission: 10/21/20 Attend Phys: Andrew Renee MD Discharge: Date of : 46 Report #: [id number] The patient's prognosis for significant practical improvement within a reasonable period of time appears good. Given the patient's complex medical condition and risk of further medical complication, rehabilitation services cannot be safely provided at a lower level of care such as a assisted facility. By: [id number] Andrew Renee MD /PMT
[~2020-10-21 14:50] MED LIST changes: +COZAAR100 MG PO; +OXYCODONE HCL10 MG PO
--- NOTE | 2020-10-21 15:18 | NUR ---
chart review. mica visited with melissa at bedside, cm cont to wear face mask and shield during visit, education on team meeting and dcp for acute rehab. noted she has FWW and 4WW, uses cpap at home. she cares for her spouse, who is wc bound. they have stair lift. she also has support from her daughter trever. had home health in past from [facility]. mica informed by mica franco that pt has pet scan at on 10/26/20. feliciano nino informed 5n feliciano pressure supervisor betzy Payton for follow up.
[2020-10-21 19:00] VITALS: BP 115/59
--- NOTE | 2020-10-21 22:00 | NUR ---
ADMIT TO REHAB ARRIVING AT 1900. PATIENT IS HER TO EVALUATE GAIT INSTABILITY, HAS MID-STERNAL MASS THAT HAS BEEN HELPING TO SLOW HER DOWN. O2 SAT 85% AT ARRIVAL, SO SHE WAS PLACED ON 2L PNC, SHE TYPICALLY HAS 2L O2 BLED INTO HER CPAP UNIT AND STARTING THAT NOW PER REQUEST (BEDTIME) 70 UNITS OF LANTUS INSULIN AT HS WITH BLOOD SUGAR OF 241 UP TO TOILET WITH GAIT BELT, WALKER, AND CONTACT GUARD ASSIST FOR SIGNIFICANT VOIDING.
[2020-10-22 05:17] LABS: HEMATOCRIT 25.4 % (37.0-47.0); HEMOGLOBIN 8.1 gm/dL (12.0-15.0); MCH 28.5 pg (26.0-34.0); MCV 88.9 fL (80.0-100.0); RBC 2.86 mil/uL (4.20-5.00); RDW 17.9 % (10.5-14.5); WBC 3.9 thou/uL (4.0-11.0)
[2020-10-22 05:40] LABS: CALCIUM 9.2 mg/dL (8.5-10.1); CREATININE 1.3 mg/dL (0.6-1.0); POTASSIUM 4.7 mmol/L (3.5-5.1)
--- NOTE | 2020-10-22 06:00 | NUR ---
TOLERATED CPAP FOR GREATER THAN 6 HOURS O/N, O2 SAT MONITOR DROPPING TO 80s EPISODICALLY WHEN OFF CPAP, SO PLACED ON 2L PNC FOR NOW
[2020-10-22 08:00] VITALS: BP 140/43
--- NOTE | 2020-10-22 11:16 | NUR ---
ASSESSED AT START OF SHIFT. PT EATING BREAKFAST. C/O ABOUT LOW DOSE INSULIN ADMNISTRATION. KENZIE NOTIFIED AND INSULIN ORDERS CAHNGED. MORNING MEDS GIVEN AND PT JOEY IT WELL. PROGRESSING TOWARDS GOALS. REPORT GIVEN TO OTHER RN.
--- NOTE | 2020-10-22 15:22 | NUR ---
PATIENT C/O LUQ PAIN THIS AM, BUT INITIALLY STATED THAT SHE FELT THE PAIN MEDS MADE HER FEEL "DISCONNECTED," SO DISCUSSED WITH DRAW FURNACE TENDER SANIYA WITT AND ORDERS FOR LESSER DOSE AN OPTION WERE RECEIVED. PATIENT BECAME NAUSEATED AFTER BREAKFAST AND VOMITTED 500 CC UNDIGESTED FOOD, AND ORDERS RECEIVED FOR ZOFRAN ODT RECEIVED. PT THEN PARTICIPATED IN THERAPIES, BUT LATER BECAME NAUSEATED AND VOMITTED ANOTHER 500 CC AFTER EATNG LUNCH, AT THIS TIME C/O SEVERE LUQ PAIN. KENZIE GOTTIRANDY NOTIFIED PT'S FSBS WAS 323, BUT SHE WAS VOMITTING. ORDERS RECEIVED TO HOLD THE SSI, AND ONLY GIVE THE SCHEDULED INSULIN AND TO RECHECK IN 2 HOURS AFTER INSULIN ADMIN. PT ALSO GIVEN FENTANYL IV AND IV PUSH REGLAN X 1 DOSE. KUB ORDERED AND DONE, WELL CXR PORTABLE. AND AWAITING THESE RESULTS. FRANCISCO PEDERSON AT BEDSIDE.
--- NOTE | 2020-10-22 17:36 | NUR ---
o2 removed, as sat on room air is currently 100%
[2020-10-22 19:23] VITALS: BP 95/45
--- NOTE | 2020-10-22 20:16 | NUR ---
1845 O2 SAT ON ROOM AIR WHILE PT ASLEEP DROPPED TO 88% AND HR 45. O2 PLACED BACK ON AT 1L, AND SAT INC TO 93%. WILL REMAIN ON 1L AT THIS TIME.
[2020-10-23 05:48] LABS: CALCIUM 9.8 mg/dL (8.5-10.1); CREATININE 1.3 mg/dL (0.6-1.0); POTASSIUM 4.5 mmol/L (3.5-5.1)
[2020-10-23 07:45] VITALS: BP 131/45
--- NOTE | 2020-10-23 12:33 | NUR ---
ASSUMED CARE AT 0700. PT SLEPT FAIRLY WELL. ALERT AND ORIENTATED. PAIN IS CONTROLLED AT THIS TIME AND DID NOT REQ ANY OXYCODONE. ON KAYT TYLENOL WHICH SEEMS TO BE HELPFUL WELL. UP WITH ASSIST TO THE BATHROOM. ON 2L O2 AND SAT AT 93% WITH CONT PULSE 02. APPETITE GOOD. PREMEALS INSULIN GIVEN. NO COMPLAINS OF NAUSEA OR EMESIS TODAY. LAST BM 10/22.
[2020-10-23 20:14] VITALS: BP 130/34
--- NOTE | 2020-10-24 02:19 | NUR ---
assumed care approx 0 evening 10/23. pt sitting up in recliner at change of shift alert and oriented x4, appropriate and cooperative. pt up to bathroom to void and small bm in toilet with walker and 1 assist. pt took hs meds with water tolerating well. pt wearing cpap at present with continous pulse oximetry on with sats in the 90's. pt appears to be sleeping soundly with bed alarm on and call light in reach. will continue to monitor.
[2020-10-24 07:00] VITALS: BP 128/48
--- NOTE | 2020-10-24 10:58 | NUR ---
ASSUMED CARE AT 0700. PATIENT IS ALERT AND ORIENTED X4. PATIENT WILLIAMSON'S, STARCH AND PROSIZE MIXER ARE WEAK. PATIENT HAS TROUBLE OPENING THINGS. LUNGS ARE DEMINISHD. HR59. CONTINUES ON RESPIRATORY TX. 02 AT 2L PER N/C AT 100% REMOVED BY R.T. PLAN RECHECK IN 2 HOURS. 02 SAT IS 99% ON RA AT 10 A.M. PATIENT WAS LEFT ON R.A. ABD IS SOFT WITH BSX4. LAXATIVES GIVEN. UP TO THE BATHROOM TO VOID SHAGGY COLORED URINE. PATIENT IS UP WITH GAITBELT AND WALKER AND ASSIST OF 1 STAFF. FALL AND SAFETY PROTOCOLS IN PLACE. C/O PAIN IN HER BACK. MEDICAED WITH PRN PAIN MEDS. WILL CONTINUE TO MONITER.
[2020-10-24 20:13] VITALS: BP 119/32
--- NOTE | 2020-10-25 01:26 | NUR ---
assumed care approx 1900 evening 10/24. pt alert and oriented x4, appropriate and cooperative. pt up to bathroom with walker with standby assist. pt stated she had small bm early in day and c/o needing to have another bm however pt refused Miralax. pt fitted with cpap by RT and appears to be sleeping soundly. bed alarm on and call light in reach. will continue to monitor.
[2020-10-25 05:39] LABS: CALCIUM 9.5 mg/dL (8.5-10.1); CREATININE 1.1 mg/dL (0.6-1.0); POTASSIUM 4.9 mmol/L (3.5-5.1)
[2020-10-25 07:49] VITALS: BP 143/44
--- NOTE | 2020-10-25 10:40 | NUR ---
ASSUMED CARE AT 0700. SLEPT FAIRLY WELL. ALERT AND ORIENTATED X 4. PAIN IS CONTROLLED WITH KATY TYLENOL AND PT LAST RECEIVED HER OXYCODONE WAS YESTERDAY AM. PT DENIES ANY PAIN CURRENTLY. UP WITH MIN ASSIST. PT DENIES ANY NAUSEA TODAY. PT REPORTED FEELING SLIGHTLY CONSTIPATED. GAVE HER MIRALAX WITH PRUNE JUICE AND PT HAD A LARGE BM. APPETITE GOOD. INSULIN PREMEAL GIVEN. PT ALSO COMPLAINED OF HAVING FUNGAL RASH IN HER GROIN AND RECEIVED ORDER FOR NYSTATIN POWDER. OT INFORMED STAFF PT REQ FOR LYMPHEDEMA AND DR ALANIS AWARE AND WILL ADD AN ORDER.
--- NOTE | 2020-10-25 17:07 | NUR ---
Orders received, chart reviewed. Will defer eval until biopsy results come back. If positive, will consult with Dr Potter to see if he feels it is appropriate to treat pt at this time. Thank you for the referral.
[2020-10-25 20:00] VITALS: BP 141/63
--- NOTE | 2020-10-26 02:50 | NUR ---
PREFERRED TO WAIT UNTIL AM WITH USING NYSTATIN POWDER, UP TO TOILET WITH MIN ASSIST, WALKER, AND LOW GAIT BELT. TOLERATING CPAP, WANTED TO START IT EARLIER, CONTINUOUS PULSE OX MONITOR SHOWS NO OXYGEN BLEED IN NECESSARY TONIGHT. TOLERATED SCDs LESS THAN 3 HOURS, LOVENOX GIVEN LAST EVENING WITH SOME RELUCTANCE, BUT DECIDED TO TAKE IT AFTER ALL DUE TO HAVING SEEN SOMEONE HAVE TROUBLE WITH PEs. RELIEVED THAT HER BOWELS HAVE BEEN "OPENED UP", WEARING BRIEF O/N TONIGHT ONLY JUST IN CASE THEY DON'T SLOW DOWN; IT HASN'T BEEN A PROBLEM SO FAR THIS SHIFT
--- NOTE | 2020-10-26 05:16 | NUR ---
tolerated cpap [id number]
[2020-10-26 07:29] VITALS: BP 142/53
--- NOTE | 2020-10-26 13:16 | NUR ---
team meeting, reccommendation: mild cog/memory. she wants to be strong enought when going home to help her . pet scan outpt on . dc 3/ hh (pt, ot, nursing). no dme needs.
--- NOTE | 2020-10-26 18:36 | NUR ---
ASSUMD PATIENT CARE AT 0700. A/O X4. WORK WITH PT/OT/ST. TOLERATED WELL. NO DISDRTESS NOTED. SLOWLY TOWARDS POC GPALS.
[2020-10-26 19:33] VITALS: BP 138/41
--- NOTE | 2020-10-27 05:04 | NUR ---
ASSESSMENT: PT REMAIN ALERT AND ORIENT TIMES FOUR. UP WITH SBA TO BR USING WALKER. REFUSES GB R/T MID CHEST BX SITE AND PAIN. SMALL BM THIS SHIFT. VSS, AFEBRILE. WILL PRN PAIN MEDICATION GIVEN WITH GOOD RELIEF. WILL CONTINUE TO MONITOR.
[2020-10-27 07:45] VITALS: BP 144/43
--- NOTE | 2020-10-27 17:13 | NUR ---
ASSUMED CARE AT 0700. ALERT AND ORIENTATED. PAIN IS STABLE AND CONTROLLED WITH KATY TYLENOL. PT DOES NOT REQ ANY OXYCODONE AND RATES PAIN AT 4/10. UP WITH SBA. HAD A LARGE BM TODAY. PARTICIPATING WITH THERAPY AND IS PROGRESSING TOWARDS GOAL. BS WAS LOW FOR SUPPER AT 63, RECHECKED 64, PT DENIES ANY HYPOGLYCEMIC ATTACK. GAVE HER DINNER TRAY AND ATE 100%. WILL RECHECK BLOOD.
[2020-10-27 20:00] VITALS: BP 169/66
--- NOTE | 2020-10-28 04:31 | NUR ---
ASSESSMENT SHATED, VSS, SBA TO Bathroom, wearing 2l/nc instead of bipap tonight, tylenol given for midsternal pain, sleeping in room most of the evening, remains a & o, planning on dc on sunday, will con't to monitor.
[2020-10-28 05:29] LABS: ABSOLUTE NEUTROPHILS 3.3 thou/uL (1.4-8.2); BASOPHILS 0.4 % (0.0-2.0); EOSINOPHILS 1.5 % (0.0-3.0); HEMATOCRIT 25.1 % (37.0-47.0); HEMOGLOBIN 8.2 gm/dL (12.0-15.0); LYMPHOCYTES 24.3 % (24.0-44.0); MCH 29.5 pg (26.0-34.0); MCHC 32.7 g/dL (28.0-37.0); MCV 90.2 fL (80.0-100.0); MONOCYTES 5.8 % (1.0-8.0); PLATELET COUNT 213 thou/uL (150-400); RBC 2.78 mil/uL (4.20-5.00); RDW 18.8 % (10.5-14.5); WBC 4.9 thou/uL (4.0-11.0)
[2020-10-28 05:42] LABS: CALCIUM 9.7 mg/dL (8.5-10.1); CREATININE 1.3 mg/dL (0.6-1.0); MAGNESIUM 1.6 mg/dL (1.8-2.4); POTASSIUM 4.4 mmol/L (3.5-5.1)
[2020-10-28 07:45] VITALS: BP 123/56
--- NOTE | 2020-10-28 11:37 | NUR ---
Nutrition Note: Pt with acute metacolic encephalopathy, weakness. Pt with good appetite eating 100%, no new wt noted since 10/21/19. Pt with no c/o GI distress. No PU noted. Pt remains low nutritional risk at this time.
--- NOTE | 2020-10-28 13:00 | NUR ---
ASSUMED CARE AT 0700. ALERT AND ORIENTATED. PAIN IS STABLE WITH KATY TYLENOL. RATES PAIN AT 4-5/10. MORE WITH MOVEMENT. BLOOD SUGAR CHECKED AND RECEIVED 35 UNITS OF INSULIN PRE MEALS. NO SIGNS OF HYPOGLYCEMIA. PT REQ FOR UNDERCOVER AGENT FOR DD EDUCATION SUGGESTED BY SANIYA SALEEM TO THE PT. LYMPHEDEMA TREATMENT GIVEN TODAY. PARTICIPATING IN THERAPY AND PROGRESSING TOWARDS GOAL. PLAN FOR DC HOME WITH DAUGHTER, ROSARIO NAJERA TOMORROW AT 1730.
[2020-10-28 14:07] VITALS: BP 123/56
[2020-10-28] MEDS ORDERED: MIRALAX17 GM PO ×2 (15:55)
--- NOTE | 2020-10-28 16:45 | NUR ---
FAXED REFERRAL TO [facility] SPOKE WITH AMINA IN INTAKE SHE CAN ACCEPT AT [place] TOMORROW 10/29.
[2020-10-28 20:25] VITALS: BP 147/49
--- NOTE | 2020-10-29 03:35 | NUR ---
pt alert and oriented x4, appropriate and cooperative. pt modified indep in room tolerating well. pt stated she was looking forward to being discharged. pt took hs meds with water tolerating well. pt spot checked with 02 sat monitor tonight and pt within normal limits on both 02 sat 97% and pulse range from 61-80. pt on 1L n/c off and on between bathroom visits. call light in reach. will continue to monitor.
[2020-10-29 08:00] VITALS: BP 158/48
--- NOTE | 2020-10-29 13:26 | NUR ---
ASSUMED CARE OF PATIENT AT 0700 THIS MORNING. PT. SITTING UP IN BED TO EAT BREAKFAST. COOPERATIVE WITH MORNING MEDICATIONS AND ASSESSMENT. SHE WAS PLEASANT AND COOPERATIVE WITH ALL. HER DAUGHTER WAS PRESENT. KENZIE WENT OVER ALL HER MEDICATIONS WITH DAUGHTER AND PT. AT 1330 PT. AND HER DAUGHTER LEFT IN THE FAMILY CAR. PT. TOOK ALL HER BELONGINGS, D/C PAPERWORK, D/C LIST OF MEDICATIONS, WALKER. THEY LEFT WITHOUT PROBLEMS NOTED.
--- NOTE | 2020-10-29 14:08 | NUR ---
PT DISCHARGING TODAY TO HOME WITH [facility] SPOKE WITH AMINA IN INTAKE THEY RECEIVED ORDERS AND WILL ARRANGE VISITS WITH PT.
--- NOTE | 2020-10-30 11:30 | HC ---
[facility] [place] [address] CONSULTATION Name: ONUR JACKSON Room #: 515-P [facility] IN .R.#: [id number] Admission: 10/21/20 Attend Phys: Andrew Renee MD Discharge: 10/29/20 Date of : 46 Report #: [id number] THIS REPORT FOR: cc: George Pagan MD, Christopher B. MD Deutch,Demetrius Payton. PhD ~ DATE OF SERVICE: 10/24/2020 NEUROBEHAVIORAL STATUS EXAM ATTENDING PHYSICIAN: Andrew Renee MD SAFETY INSTRUCTION POLICE OFFICER: Demetrius Gray, PhD CLINICAL PRESENTATION: The patient is a 70-year-old female admitted to the rehabilitation unit for a comprehensive inpatient rehabilitation program. She was initially admitted to the hospital on 10/19/2020 with midsternal chest pain and increased confusion. She has a history of breast cancer and has undergone chemoradiation at the [facility] in 2019. Concerned about the possible recurrence of cancer along CT imaging, revealed possible tumor versus infection. She has a history of chemo-induced neuropathy and a history of erosive esophagitis with a dilation and EGD on 07/16/2020. Mild confusion was noted during her initial admission. Prior to this most recent admission, she was living independently in her own home with her . Her diagnosis on admission to the rehabilitation unit was toxic metabolic encephalopathy, weakness with gait instability, premorbid peripheral neuropathy, chemotherapy-induced, chest mass, probable breast cancer recurrence, diabetes mellitus type 2, anemia, obstructive sleep apnea, history of erosive esophagitis with esophageal dilation, hypertension and hyperlipidemia. A complete description of her medical condition and history can be found in her medical record. Neuropsychological consultation was requested to provide assistance in the assessment of cognitive and emotional status and provide recommendations and services. The patient described aspects of her recent hospitalization. She was confused and disoriented during her initial admission. Currently her daughter and the patient indicate improved orientation. She lives with her and has 2 children that have been available to assist both of them. Chest pain reported as preceding her most recent hospitalization along with weakness. In 2019, problems with memory were noticed as she was forgetting conversations and having problems with verbal fluency. 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 She is a high school graduate with 3 years of college. [address] [address] CONSULTATION Name: ONUR JACKSON Room #: 515-P [facility].#: [id number] Admission: 10/21/20 Attend Phys: Andrew Renee MD Discharge: 10/29/20 Date of : 46 Report #: [id number] TECHNIQUES UTILIZED: Clinical interview, review of medical records, staff consultation and behavioral observation, mini mental status exam 2 standard version, family interview with daughter. EXAMINATION FINDINGS: The patient was alert and cooperative with the assessment. She accurately described events surrounding her admission. There is no evidence of aphasia. Her thoughts are logical and goal oriented. There is no evidence of thought disorder. She describes her symptoms to include memory and verbal fluency deficits. She does not report anxiety, depression or difficulty with sleep or appetite. Performance on the MMSE 2 brief version was in the mild range of impairment with a raw score of 13/16. She was 3/3 for initial registration, 4/5 for orientation to time and 5/[address]. She was 1/3 for immediate recall of 3 items after a brief time delay and distraction. Her performance on the MMSE 2 standard version is within normal limits with a raw score of 26/30. The patient was able to copy a simple geometric design. Clock drawings within normal limits. The patient is likely presenting with a mild neurocognitive disorder. Narcotic pain medication may be interfering with cognition. Delirium appears to have resolved. DIAGNOSTIC IMPRESSION: Mild neurocognitive disorder, unspecified, without behavior disorder. PLAN: The patient would benefit from assistance in the management of medication, finances and nutrition. The delirium appears to have resolved. However, additional assistance will be necessary for her to maintain safety in the home. Neurocognitive deficits may be secondary to chemotherapy and medical etiology. Thank you very much for allowing me to provide the consultation on this patient. <ELECTRONICALLY SIGNED> By: Demetrius Gray, PhD 10/30/20 1130 17 2252 Demetrius Gray, PhD /nt
== END 2020-10-29 13:30 | disposition home health service (06) | DRG 91 ==
PROVIDERS: Nurse Practitioner; Nurse Practitioner Family; ADMIT Physical Medicine & Rehabilitation; ATTEND Physical Medicine & Rehabilitation
PROC: 5A09357 Assistance with Respiratory Ventilation, Less than 24 Consecutive Hours, Continuous Positive Airway Pressure (ICD-10-PCS; principal; 2020-10-21)
PROC: 5A09357 Assistance with Respiratory Ventilation, Less than 24 Consecutive Hours, Continuous Positive Airway Pressure (ICD-10-PCS; 2020-10-22)
PROC: 5A09457 Assistance with Respiratory Ventilation, 24-96 Consecutive Hours, Continuous Positive Airway Pressure (ICD-10-PCS; 2020-10-23)
DX: G92 Toxic encephalopathy (principal); J96.01 Acute respiratory failure with hypoxia; N17.9 Acute kidney failure, unspecified; E11.42 Type 2 diabetes mellitus with diabetic polyneuropathy; D64.9 Anemia, unspecified; G47.33 Obstructive sleep apnea (adult) (pediatric); I10 Essential (primary) hypertension; E78.5 Hyperlipidemia, unspecified; R26.89 Other abnormalities of gait and mobility; G31.84 Mild cognitive impairment of uncertain or unknown etiology; C50.919 Malignant neoplasm of unspecified site of unspecified female breast; G62.0 Drug-induced polyneuropathy; T45.1X5A Adverse effect of antineoplastic and immunosuppressive drugs, initial encounter; R53.81 Other malaise; R00.1 Bradycardia, unspecified; F32.9 Major depressive disorder, single episode, unspecified; M10.9 Gout, unspecified; E03.9 Hypothyroidism, unspecified; M79.7 Fibromyalgia; Y92.89 Other specified places as the place of occurrence of the external cause; Z90.13 Acquired absence of bilateral breasts and nipples; Z92.21 Personal history of antineoplastic chemotherapy; Z92.3 Personal history of irradiation; Z88.0 Allergy status to penicillin; Z88.1 Allergy status to other antibiotic agents; Z88.8 Allergy status to other drugs, medicaments and biological substances; Z91.018 Allergy to other foods; Z91.030 Bee allergy status; Z87.442 Personal history of urinary calculi; Z90.49 Acquired absence of other specified parts of digestive tract; Z90.710 Acquired absence of both cervix and uterus; Z87.891 Personal history of nicotine dependence
CPT/HCPCS: 10112

== ENCOUNTER → 2020-11-22 | Outpatient (CLI) | payer OTHER ==
[~2020-11-22] MED LIST changes: +ARIMIDEX1 MG PO; +MIRALAX17 GM PO; +ZINC50 M1 PO
[2020-11-22 09:18] LABS: ABSOLUTE NEUTROPHILS 4.1 thou/uL (1.4-8.2); BASOPHILS 0.5 % (0.0-2.0); EOSINOPHILS 2.1 % (0.0-3.0); HEMATOCRIT 31.7 % (37.0-47.0); HEMOGLOBIN 10.2 gm/dL (12.0-15.0); MCH 28.5 pg (26.0-34.0); MCHC 32.2 g/dL (28.0-37.0); MCV 88.3 fL (80.0-100.0); MONOCYTES 5.4 % (1.0-8.0); PLATELET COUNT 189 thou/uL (150-400); RBC 3.59 mil/uL (4.20-5.00); RDW 18.8 % (10.5-14.5); WBC 5.6 thou/uL (4.0-11.0)
[2020-11-22 09:29] LABS: CALCIUM 9.9 mg/dL (8.5-10.1); CREATININE 1.3 mg/dL (0.6-1.0); POTASSIUM 3.7 mmol/L (3.5-5.1)
[2020-11-22 09:32] LABS: APTT 21.4 Seconds (24.5-32.8); PROTIME 10.7 Seconds (9.3-11.4)
[2020-11-22 11:13] LABS: ANISOCYTOSIS 2+
== END ==
LOC: LAB 09:00
PROVIDERS: ATTEND Internal Medicine Hematology & Oncology
DX: C50.412 Malignant neoplasm of upper-outer quadrant of left female breast (principal); R93.89 Abnormal findings on diagnostic imaging of other specified body structures; R94.6 Abnormal results of thyroid function studies; I67.89 Other cerebrovascular disease; E11.9 Type 2 diabetes mellitus without complications; Z17.0 Estrogen receptor positive status [ER+]; Z79.01 Long term (current) use of anticoagulants

== ENCOUNTER → 2020-11-25 | Outpatient (CLI) | payer OTHER ==
[2020-11-22 09:18] LABS: ABSOLUTE NEUTROPHILS 4.1 thou/uL (1.4-8.2); BASOPHILS 0.5 % (0.0-2.0); EOSINOPHILS 2.1 % (0.0-3.0); HEMATOCRIT 31.7 % (37.0-47.0); HEMOGLOBIN 10.2 gm/dL (12.0-15.0); MCH 28.5 pg (26.0-34.0); MCHC 32.2 g/dL (28.0-37.0); MCV 88.3 fL (80.0-100.0); MONOCYTES 5.4 % (1.0-8.0); PLATELET COUNT 189 thou/uL (150-400); RBC 3.59 mil/uL (4.20-5.00); RDW 18.8 % (10.5-14.5); WBC 5.6 thou/uL (4.0-11.0)
[2020-11-22 09:29] LABS: CALCIUM 9.9 mg/dL (8.5-10.1); CREATININE 1.3 mg/dL (0.6-1.0); POTASSIUM 3.7 mmol/L (3.5-5.1)
[2020-11-22 09:32] LABS: APTT 21.4 Seconds (24.5-32.8); PROTIME 10.7 Seconds (9.3-11.4)
[2020-11-22 11:13] LABS: ANISOCYTOSIS 2+
[~2020-11-25] VITALS: Ht 162.6 cm; Wt 106.6 kg
[2020-11-25 09:06] VITALS: BP 141/56
[2020-11-25 11:50] VITALS: BP 131/42
[2020-11-25 12:04] VITALS: BP 123/50
--- NOTE | 2020-12-01 17:06 | PATH ---
[facility] [address] [place] [address] PATHOLOGY RPT PROCEDURE Name: COLETTE JACKSON Doreen Room #: REG [facility] Jose.#: [id number] Admission: 11/25/20 Date of : 46 Discharge: Report #: [id number] Path Case #: [id number] LCA Accession Number: [id number] . 01 Material submitted: . chest - CHEST WALL. Modifiers: wall . 01 Clinical history: . RN/CAT/BIOPSY/LAB/CB/CHEST WALL MASS 2 FNA SAMPLES CHEST WALL SOFT TISSUE BIOPSY CHEST WALL MASS CORE BIOPSY IN FORMALIN PLEASE SEND RPMI FOR FLOW NO CYTOLOGY - CANCELLED . 02 Diagnosis: Soft tissue, chest wall mass, needle core biopsy: - Moderate chronic inflammation, fibrosis as well as reparative changes. - No definite malignancy present. . (IUV:mml; 11/29/2020) QLM 11/29/2020 1347 Local . 02 Comment: Examination shows dense fibrous tissue interspersed with moderate chronic inflammation comprised of abundant plasma cells. Scattered macrophages are identified as well. Malignant epithelial cells are not identified. . Portion of the specimen was sent for flow cytometric analysis (result number [id number]). It showed no significant lymphoid immunophenotypic abnormalities/no immunophenotypic evidence of non-Hodgkin's lymphoma, blastic cells or plasma cells within the analysis. Please refer to separate report for complete details. The flow cytometric analysis will be reported as an addendum to follow. . Multiple properly-controlled immunohistochemical stains are performed on block A2. There is no reactivity identified with CK7, PAX 8, Desmin, E-cadherin as well as ER. TRISTA-3 shows nonspecific nuclear reactivity within scattered cells in the inflammatory infiltrate. CD68 is reactive within numerous macrophages. . Based on the immunohistochemical stains, the lesion represents reparative changes, scar tissue, likely a keloid-like area. No definitive malignancy is identified. Dr. Mikala Naylor has seen a merchandiser retail representative slide of this case and concurs with my diagnosis. Findings of this case are discussed with Dr. Ortiz Marinelli at approximately 3:54 [place] [address] PATHOLOGY RPT PROCEDURE Name: COLETTE JACKSON Doreen [id number] Admission: 11/25/20 Date of : 46 Discharge: Report #: [id number] Path Case #: [id number] 11/26/2020. . (IUV:mml; 11/29/2020) . 02 Addendum: . Special studies report received from [facility], [address] [place] [address], [address], [place], [address], on case [id number], labeled with their number [id number], dated 11/29/2020. . Flow Cytometry: Hematologic Neoplasia Assessment . Clinical History Chest wall mass . Indication for Study Evaluation for hematolymphoid neoplasia . Specimen Tissue, Chest Wall . Viability 62% (7AAD exclusion) . Interpretation Tissue, Chest Wall: No significant lymphoid immunophenotypic abnormalities detected . Comments No immunophenotypic evidence of non-Hodgkin lymphoma, blastic cells or plasmacytoma is detected in this analysis. Some large cell lymphomas are prone to rapid degeneration which can render such lesions undetectable by flow cytometry. Also, Hodgkin lymphoma, some T cell lymphomas, and T-cell-rich B-cell lymphoma may not be detectable by flow cytometry. A thorough clinical, histologic and immunohistochemical correlation is recommended for full exclusion of non-hematolymphoid cellular processes, atypical lymphoid reactions, granulomatous disease or Hodgkin lymphoma. . Populations Analyzed Lymphocytes: 14% B-cells: 0.9%, polytypic/polyclonal sIg light chain pattern (K/L= 1.7:1) T-cells: no significant abnormalities of the markers tested CD4:CD8: 0.7 CD45 Negative 86% No significant reactivity with the markers tested Events/Debris: (may represent non-hematolymphoid cells, degenerated cells, debris, unlysed red blood cells, etc.) . Morphologic Evaluation [address] [address] PATHOLOGY RPT PROCEDURE Name: COLETTE JACKSON Doreen Room #: REG [facility].#: [id number] Admission: 11/25/20 Date of : 46 Discharge: Report #: [id number] Path Case #: [id number] A slide was reviewed for compliance quality performance analyst purposes only. . Specimen Description Total Cell Yield: 0.15 X 10 and 6 . Pertinent Prior Test Results Received Date Test Type Specimen Type Result 04/09/2019 Image Prognostic Tissue Result Number: [id number] Studies HER2-Not Over-Expressed H/E Negative . Reagent(s) Used CD3, CD4, CD5, CD8, CD10, CD19, CD20, CD38, CD45, CD57, kappa, lambda . at [employer] [employer]. Joaquín Sadler MD Pathologist . . Intended Use Flow cytometry is optimally used to immunophenotypically characterize abnormal populations when they are detected. Negative flow cytometry results do not exclude lymphoma or neoplasia. Possible false negative flow cytometry results may occur in, but are not limited to, the following: neoplastic cells in Hodgkin lymphoma are not typically adequately represented by routine clinical flow cytometry; neoplastic cells may be lost or inadequately represented due to degeneration, sample processing, sampling artifact, or patchy involvement; plasma cells are typically underrepresented by flow cytometry; immature cells/blasts may be underrepresented due to hemodilution; myeloproliferative disorders and low grade myelodysplasia may not have immunophenotypic abnormalities or increased blasts. Correlation with all available clinical, laboratory, and morphologic data is always necessary to assess for the possibility of false negative flow cytometry results and to establish a diagnosis. Each marker in this analysis was used to assess for potential antigenic abnormalities or to evaluate detected abnormalities. . Any image or images that accompany this report are merchandiser retail representative images only and should not be used to render a diagnosis. . Disclaimer(s) This test was developed and its performance characteristics determined by [employer]. It has not been cleared or approved by the Food and Drug Administration. . [facility] is a business unit of [facility] [address] [place] [address] PATHOLOGY RPT PROCEDURE Name: COLETTE JACKSON Room #: REG [facility]#: [id number] Admission: 11/25/20 Date of : 46 Discharge: Report #: [id number] Path Case #: [id number] [employer] a wholly-owned subsidiary of [employer]. . This test was performed at [employer] at [address], [address] - Construction Person: Geraldo Jernigan MD. . For inquiries, the physician may contact Lab: [phone] . A complete copy of the report is on file. . Professional services performed by [employer] at [address], [place] [address]. Technical services performed by [employer] at [address], [place] [address]. . (IUV:amj 11/29/2020) . AZJ/12/01/2020 Addendum Electronically Signed by Falguni Amado MD, Pathologist . 02 Electronically signed: . Falguni Amado MD, Pathologist NPI- [id number] . 01 Gross description: . The specimen is received in formalin, labeled "Colette Jackson, chest wall". Received are three needle cores of pale boateng tissue ranging in length from 0.9-1.8 cm, with each measuring 0.1 cm in diameter. The specimen is submitted entirely in cassettes A1 through A3. A portion of the specimen is received in RPMI solution and is forwarded on for flow cytometry studies. (CAA; 11/25/2020) QA/QA 11/25/2020 1857 Local . 02 Pathologist provided ICD-10: M79.89 . 02 CPT . 267305, X16623, B55038 Specimen Comment: A courtesy copy of this report has been sent to [phone] Specimen Comment: [phone], Specimen Comment: Report sent to ,DR LOCKE / DR LIVINGSTON Performed at: 01 [facility] [address] [id number] MD Benigno Salazar MD Phone: [phone] [address] [address] PATHOLOGY RPT PROCEDURE Name: COLETTE JACKSON Room #: REG [facility].#: [id number] Admission: 11/25/20 Date of : 46 Discharge: Report #: [id number] Path Case #: [id number] Performed at: [address] [id number] MD Falguni Amado MD Phone: [phone]
== END | disposition home or self-care (01) ==
LOC: CAT 11-22 08:03 → LAB 08:12
PROVIDERS: ATTEND Internal Medicine Hematology & Oncology
DX: J98.8 Other specified respiratory disorders (principal); M79.89 Other specified soft tissue disorders; J84.10 Pulmonary fibrosis, unspecified; I10 Essential (primary) hypertension; E78.5 Hyperlipidemia, unspecified; E11.9 Type 2 diabetes mellitus without complications; G47.30 Sleep apnea, unspecified; D64.9 Anemia, unspecified; K21.9 Gastro-esophageal reflux disease without esophagitis; Z98.890 Other specified postprocedural states; Z79.899 Other long term (current) drug therapy; Z90.710 Acquired absence of both cervix and uterus; Z85.3 Personal history of malignant neoplasm of breast; Z90.49 Acquired absence of other specified parts of digestive tract; Z85.828 Personal history of other malignant neoplasm of skin; Z79.4 Long term (current) use of insulin; Z88.0 Allergy status to penicillin; Z88.8 Allergy status to other drugs, medicaments and biological substances

== ENCOUNTER 2021-09-27 07:47 | Emergency (ER) | payer OTHER ==
[~2021-09-27] VITALS: Ht 162.6 cm; Wt 104.3 kg
[2021-09-27 08:43] LABS: ABSOLUTE NEUTROPHILS 2.7 thou/uL (1.4-8.2); BASOPHILS 0.6 % (0.0-2.0); EOSINOPHILS 2.7 % (0.0-3.0); HEMATOCRIT 34.8 % (37.0-47.0); HEMOGLOBIN 11.9 gm/dL (12.0-15.0); LYMPHOCYTES 34.5 % (24.0-44.0); MCH 31.8 pg (26.0-34.0); MCHC 34.1 g/dL (28.0-37.0); MCV 93.2 fL (80.0-100.0); MONOCYTES 5.8 % (1.0-8.0); PLATELET COUNT 165 thou/uL (150-400); POLYS 56.4 % (36.0-66.0); RBC 3.74 mil/uL (4.20-5.00); RDW 16.6 % (10.5-14.5); WBC 4.8 thou/uL (4.0-11.0)
[2021-09-27 08:54] LABS: CALCIUM 9.6 mg/dL (8.5-10.1); CREATININE 1.1 mg/dL (0.6-1.0); POTASSIUM 3.6 mmol/L (3.5-5.1)
[2021-09-27] MEDS ORDERED: NAPROSYN500 MG PO (11:00)
[2021-09-27] MEDS ORDERED: APAP W/CODEINE1 TA2 PO (11:00)
[2021-09-27 11:01] VITALS: BP 156/51
--- NOTE | 2021-09-27 11:57 | EKG ---
[place] [address] [facility] [place] [address] ELECTROCARDIOGRAM REPORT Name: ONUR JACKSON Room #: [facility]#: [id number] Admission: 09/27/21 Attend Phys: Discharge: 09/27/21 Date of : 46 Report #: [id number] [facility] ED Test Date: 2021-09-27 Test Time: 08:00:32 Pat Name: ONUR JACKSON Department: Room: Gender: F Historical Archeologist: alysia : 1950 Requested By: Rashid Valenzuela Order Number: [id number] MD: Cliff Christiansen Measurements Intervals Equality Rate: 66 P: 36 IA: 175 QRS: -22 QRSD: 87 T: 24 QT: 408 QTc: 428 Interpretive Statements Sinus rhythm Inferior infarct, old Anterior infarct, old Baseline wander in lead(s) II,III,aVF,V5 Compared to ECG 10/19/2020 16:29:08 No significant changes Electronically Signed On 09-27-2021 11:57:37 PETROGRAPHER by Cliff Christiansen [email or web address] <ELECTRONICALLY SIGNED> By: Cliff Christiansen MD, [facility] 09/27/21 1157 08 08 Cliff Christiansen MD, [facility] /EPI
--- NOTE | 2021-09-28 08:04 | EKG ---
[place] [address] [employer] [facility] [place] [address] ELECTROCARDIOGRAM REPORT Name: ONUR JACKSON Room #: [facility]#: [id number] Admission: 09/27/21 Attend Phys: Discharge: 09/27/21 Date of : 46 Report #: [id number] [facility] ED Test Date: 2021-09-27 Test Time: 10:39:12 Pat Name: ONUR JACKSON Department: Room: Gender: F [employer] Bo[employer] Laminator: : 1950 Requested By: Rashid Valenzuela Order Number: [id number] MD: Cliff Christiansen Measurements Intervals [place] Rate: 46 P: 38 TN: 199 QRS: -15 QRSD: 86 T: 17 QT: 456 QTc: 399 Interpretive Statements Sinus bradycardia Inferior infarct, old Compared to ECG 09/27/2021 08:00:32 Sinus rhythm no longer present Myocardial infarct finding still present Electronically Signed On 09-28-2021 8:04:29 SECURITY SOFTWARE ENGINEER by Cliff Christiansen [email or web address] <ELECTRONICALLY SIGNED> By: Cliff Christiansen MD, [facility] 09/28/21 0804 1039 38 Cliff Christiansen MD, FACC /EPI
== END 2021-09-27 11:15 | disposition home or self-care (01) ==
LOC: ER 07:47
PROVIDERS: Emergency Medicine
DX: R07.89 Other chest pain (principal); G62.9 Polyneuropathy, unspecified; I10 Essential (primary) hypertension; E11.9 Type 2 diabetes mellitus without complications; E78.5 Hyperlipidemia, unspecified; K21.9 Gastro-esophageal reflux disease without esophagitis; Z87.442 Personal history of urinary calculi; Z85.3 Personal history of malignant neoplasm of breast; Z90.49 Acquired absence of other specified parts of digestive tract; Z90.710 Acquired absence of both cervix and uterus; Z90.89 Acquired absence of other organs; Z79.4 Long term (current) use of insulin; Z79.891 Long term (current) use of opiate analgesic; Z79.899 Other long term (current) drug therapy; Z91.030 Bee allergy status; Z88.0 Allergy status to penicillin; Z91.018 Allergy to other foods; Z91.09 Other allergy status, other than to drugs and biological substances